=== PATIENT | female | born 1945 | race Caucasian/White ===

== ENCOUNTER 2023-08-01 11:05 | Inpatient (IN) | payer BC, SELFPAY ==
[2023-08-01] VITALS (17 sets, daily range): BP systolic 97–155; BP diastolic 25–80; PULSE 59–84; RESP 13–20; TEMP 35.6–36.7; O2SAT 97–98
--- NOTE | 2023-08-01 11:00 | RT.EKG_ITS ---
APPROVED REPORT Exam: Resting ECG Reason for Exam: weakness Patient Location: E HR:62 bpm ECG Measurements Heart Rate 62 AXIS DE 150 P -40 QRSd 88 QRS -19 QT 387 T -3 QTc 395 Conclusion Sinus rhythm...normal P axis, V-rate 60- 99 Inferior infarct, old...Q >35mS, II III aVF
[2023-08-01 11:36] LABS: Abs Immature Grans 0.01 10^3/uL (0.0-0.06); Absolute Basophil Count 0.03 10^3/uL (0.0-0.2); Absolute Eosinophil Count 0.07 10^3/uL (0.0-0.7); Absolute Lymphocyte Count 0.99 10^3/uL (1.2-3.4); Absolute Monocyte Count 0.34 10^3/uL (0.1-0.8); Absolute Neutrophil Count 5.08 10^3/uL (1.2-6.7); Basophils % 0.5; Eosinophils % 1.1; HCT 36.9 % (36.0-46.0); HGB 12.2 g/dL (11.2-15.7); Immature Grans % 0.2; Lymphocytes % 15.2; MCH 29.8 pg (27.0-33.0); MCHC 33.1 % (32.0-36.0); MCV 90 fL (80-95); MPV 10.1 fL (8.0-11.0); Monocytes % 5.2; Neutrophils % 77.8; Platelet Count 195 10^3/uL (130-400); RDW 12.9 % (11.7-14.6); RDW-SD 42.4 fL; WBC 6.52 10^3/uL (4.4-10.8)
--- NOTE | 2023-08-01 11:38 | ED.GENADUL_ITS ---
HPI General Mode of arrival: wheelchair . Date/Time Provider Initiated Documentation: 08/01/23 11:12 . Limitations to Documentation: no limitations . Information obtained by: patient and RN notes reviewed . History of Present Illness 77 year old F presents to the emergency department with the chief complaint of Dizziness, fatigue, malaise, black stools since yesterday, described as similar to prior episodes (Vertigo similar to past), Patient started experiencing this week(s) (2) and it has been constant. Patient did receive the following treatments prior to arrival, none Related Data Home Medications Medication Instructions Recorded Confirmed aspirin 81 mg chewable tablet 81 mg PO DAILY 08/01/23 08/01/23 (Jake Chewable Low Dose Aspirin) atorvastatin 80 mg tablet 80 mg PO DAILY 08/01/23 08/01/23 carvedilol 25 mg tablet 25 mg PO BID 08/01/23 08/01/23 chlorthalidone 25 mg tablet 25 mg PO DAILY 08/01/23 08/01/23 ibuprofen 200 mg tablet (Advil) 200 mg PO TID-QID PRN 08/01/23 08/01/23 lisinopril 40 mg tablet 40 mg PO DAILY 08/01/23 08/01/23 multivitamin 1 tab PO DAILY 08/01/23 08/01/23 Allergies Allergy/AdvReac Type Severity Reaction Status Date / Time No Known Allergies Allergy Unverified 08/01/23 11:16 General Stated Complaint: GenMedical MARLON: 3 Review of Systems Constitutional Constitutional: Reports chills, Denies fever(s), Denies frequent falls, Denies headache(s), Reports lethargy, Reports malaise and Reports poor appetite ENT Ears, Nose, Mouth, and Throat: Reports dizziness and Denies headache(s) Cardiovascular Cardiovascular: Denies chest pain, Denies syncope, Denies dyspnea and Denies dyspnea on exertion Respiratory Respiratory: Denies cough, Denies dyspnea and Denies dyspnea on exertion Gastrointestinal Gastrointestinal: Denies abdominal pain, Reports melena, Reports diarrhea, Denies nausea and Denies vomiting Genitourinary Genitourinary: Denies hematuria Neurologic Neurologic: Denies confusion, Reports dizziness, Denies syncope, Denies frequent falls and Denies headache(s) Psychiatric Psychiatric: Denies confusion Exam Const General: cooperative Orientation: alert, awake and oriented x3 Eyes Visual Grande: normal visual grande by confrontation Alignment and Position: alignment normal Periorbital: periorbital findings normal Eyelids: eyelids normal Sclera: sclerae normal Pupils: PERRL EOM: EOM intact bilaterally, no movement deficit and No nystagmus Neck Neck: normal visual inspection Resp Effort & Inspection: normal respiratory effort and able to speak in complete sentences Auscultation: clear to auscultation bilaterally Cardio Rate: regular rate Rhythm: regular rhythm Heart Sounds: S1 normal and S2 normal GI Inspection: obesity Palpation: soft, not firm, no guarding, no masses, no pulsatile masses, not rigid and nontender Auscultation: normal bowel sounds Rectal Exam - female: normal sphincter tone, heme negative stool and hemorrhoids Back/Spine/Pelvis Back: no CVA tenderness Neuro General: patient alert, patient awake, patient oriented x3, gait normal and moves all extremities Cranial Nerves: no nystagmus Cognition: normal cognition Speech: speech normal Motor: muscle tone normal throughout, no pronator drift, no movement abnormalities noted and no fasciculations Sensory Exam: no sensory deficits noted Course Vital Signs Vital signs: Vital Signs Temperature 36.2 C L 08/01/23 11:12 Pulse 70 08/01/23 11:12 Respiratory Rate 18 08/01/23 11:12 Blood Pressure 155/45 H 08/01/23 11:12 Pulse Oximetry 97 08/01/23 11:12 Temperature 36.2 C L 08/01/23 11:12 Temperature Source Temporal Artery Scan 08/01/23 11:12 Pulse 70 08/01/23 11:12 Respiratory Rate 18 08/01/23 11:12 Blood Pressure 155/45 H 08/01/23 11:12 Blood Pressure Position Sitting 08/01/23 11:12 Pulse Oximetry 97 08/01/23 11:12 Oxygen Delivery Method Room Air 08/01/23 11:12 Oxygen Flow Rate 0 08/01/23 11:12 Lab/Test Results Lab/Test Results: Laboratory Tests Range/Units 08/01/23 11:25 WBC (4.4-10.8) 10^3/uL 6.52 RBC (3.93-5.22) 10^6/uL 4.10 Hgb (11.2-15.7) g/dL 12.2 Hct (36.0-46.0) % 36.9 MCV (80-95) fL 90 MCH (27.0-33.0) pg 29.8 MCHC (32.0-36.0) % 33.1 RDW (11.7-14.6) % 12.9 Plt Count (130-400) 10^3/uL 195 MPV (8.0-11.0) fL 10.1 Immature Gran % 0.2 Neutrophils % 77.8 Lymphocytes % 15.2 Monocytes % 5.2 Eosinophils % 1.1 Basophils % 0.5 Nucleated RBC % (0.0-0.3) % 0.0 Absolute Neutrophils (1.2-6.7) 10^3/uL 5.08 Absolute Lymphocytes (1.2-3.4) 10^3/uL 0.99 L Absolute Monocytes (0.1-0.8) 10^3/uL 0.34 Absolute Eosinophils (0.0-0.7) 10^3/uL 0.07 Absolute Basophils (0.0-0.2) 10^3/uL 0.03 Medical Decision Making Patient presenting to the emergency department with son for chief complaint of dizziness fatigue and dark stools that started yesterday. She does report some green loose stools for the past 2 weeks and low food and drink intake. On Wednesday evening she did take Pepto-Bismol for her loose stools. She is here staying with her son and has been here for a while due to the holidays and recently losing her of 61 years. She has been going through quite a bit of grief. Patient has significant past medical history of hypertension, hyperlipidemia, coronary artery disease with 5 stents placed but no history of MN, and has had vertigo in the past which she states is similar to what she is experiencing but today is significantly worse. Patient denies any injury or trauma, fever or chills. She does state positioning does make her dizziness worse. Physical exam shows no obvious neurological findings but of note and could not complete hints exam due to hesitancy from symptoms with movement. Normal cardiac and respiratory exam, no obvious abdominal findings, negative Hemoccult and rectal exam otherwise unremarkable beyond obvious external hemorrhoid. Will plan on performing labs, urinalysis, EKG, and CT imaging of the head and abdomen. Please see physician interpretation for full interpretation of EKG but upon my review patient is in sinus rhythm, and no acute findings to suggest STEMI. Reviewed labs and CBC is overall nondiagnostic, CMP does show significantly low carbon dioxide at 16.5, elevated anion gap of 17.5 BUN critical value of 112, creatinine of 3.1 with a GFR of 14. Glucose is 151 and slightly low AST at 13 otherwise all other labs are within normal range. Patient does have findings to suggest urinary tract infection given large amount of leukocyte esterase and white cells greater than 50. Lab did state contaminated specimen but I do feel that patient may have underlying UTI. Will start patient on ceftriaxone, give 1 L fluid bolus and start patient on maintenance fluids. 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 No hydrocephalus. No large territorial infarct or intracranial bleed. Discussed with patient she has had no knowledge of a cyst in the past. [place] [facility] [place] to discuss patient's dizziness and this finding but have fairly low suspicion that this would require emergent intervention. Imaging Data Radiologic Study: Imaging: CT Scan Radiologist's impression: Exam(s) PROCEDURE INFORMATION: Exam: CT Head Without Contrast Exam date and time: 08/01/2023 12:11 PM Age: 77 years old Clinical indication: Other: Dizziness TECHNIQUE: Imaging protocol: Computed tomography of the head without contrast. Radiation optimization: All CT scans at this facility use at least one of these dose optimization techniques: automated exposure control; mA and/or kV adjustment per patient size (includes targeted exams where dose is matched to clinical indication); or iterative reconstruction. COMPARISON: No relevant prior studies available. FINDINGS: Brain: There are anterior dural falx calcifications. There is a partially empty sella. There are pineal gland calcifications. No large territorial infarct. There are bilateral calcifications of the cavernous segments of internal carotid arteries. Cerebral ventricles: There is a round hyperdense lesion at the foramen of Monro measuring 6 mm. No significant hydrocephalus. Paranasal sinuses: Visualized sinuses are unremarkable. No fluid levels. Mastoid air cells: Visualized mastoid air cells are well aerated. Bones/joints: Unremarkable. No acute fracture. Soft tissues: Unremarkable. IMPRESSION: 1. Colloid cyst at foramina of Monro measuring 6 mm. No hydrocephalus. 2. No large territorial infarct or intracranial bleed. Radiologic Study #2: Imaging: CT Scan Radiologist's impression: Exam(s) PROCEDURE INFORMATION: Exam: CT Abdomen And Pelvis Without Contrast Exam date and time: 08/01/2023 12:19 PM Age: 77 years old Clinical indication: Other: Dark stools TECHNIQUE: Imaging protocol: Computed tomography of the abdomen and pelvis without contrast. Radiation optimization: All CT scans at this facility use at least one of these dose optimization techniques: automated exposure control; mA and/or kV adjustment per patient size (includes targeted exams where dose is matched to clinical indication); or iterative reconstruction. COMPARISON: No relevant prior studies available. FINDINGS: Limitations: Evaluation of the solid and vascular structures is somewhat limited by lack of IV contrast. Lungs: The visualized lung bases demonstrate mild dependent atelectasis. Coronary arteries: Coronary artery calcifications are noted. Liver: The liver contains a subcentimeter hypodense lesion, too small to characterize. It appears otherwise grossly unremarkable. Gallbladder and bile ducts: Stones are present in the gallbladder. Pancreas: Grossly unremarkable. Spleen: Grossly unremarkable. Adrenal glands: Grossly unremarkable. Kidneys and ureters: There is no hydronephrosis, and no renal or ureteral calculus is identified. The kidneys appear grossly unremarkable. Stomach and bowel: The unopacified small bowel is not significantly distended to suggest obstruction. Minor descending and sigmoid colonic diverticulosis without evidence for diverticulitis. The large bowel is otherwise grossly unremarkable in appearance. Appendix: The appendix is not identified, but there are no inflammatory changes in its expected region. Intraperitoneal space: No free air or significant free fluid. Vasculature: The abdominal aorta is nonaneurysmal. Atherosclerotic vascular calcifications are noted. Lymph nodes: No gross pathologic lymphadenopathy. Urinary bladder: There is a 7 mm stone in the left posterior aspect of the urinary bladder. Reproductive: No gross adnexal abnormality is apparent, but ultrasound would be more appropriate in this regard. Bones/joints: Unremarkable. No acute fracture. Soft tissues: Small fat containing umbilical hernia. IMPRESSION: 1. No hydronephrosis or renal or ureteral calculus. 2. 7 mm stone in the urinary bladder. 3. Cholelithiasis. 4. Minor left-sided colonic diverticulosis without evidence for diverticulitis. 5. Small fat containing umbilical hernia. Lab Data Lab results reviewed: Yes I reviewed the patient's lab results. Labs: Laboratory Tests Range/Units 08/01/23 08/01/23 11:25 13:15 WBC (4.4-10.8) 10^3/uL 6.52 RBC (3.93-5.22) 10^6/uL 4.10 Hgb (11.2-15.7) g/dL 12.2 Hct (36.0-46.0) % 36.9 MCV (80-95) fL 90 MCH (27.0-33.0) pg 29.8 MCHC (32.0-36.0) % 33.1 RDW (11.7-14.6) % 12.9 Plt Count (130-400) 10^3/uL 195 MPV (8.0-11.0) fL 10.1 Immature Gran % 0.2 Neutrophils % 77.8 Lymphocytes % 15.2 Monocytes % 5.2 Eosinophils % 1.1 Basophils % 0.5 Nucleated RBC % (0.0-0.3) % 0.0 Absolute Neutrophils (1.2-6.7) 10^3/uL 5.08 Absolute Lymphocytes (1.2-3.4) 10^3/uL 0.99 L Absolute Monocytes (0.1-0.8) 10^3/uL 0.34 Absolute Eosinophils (0.0-0.7) 10^3/uL 0.07 Absolute Basophils (0.0-0.2) 10^3/uL 0.03 PT (9.1-11.1) sec 11.3 H INR (0.9-1.1) 1.1 Sodium (136-145) mmol/L 138 Potassium (3.5-5.1) mmol/L 3.5 Chloride (98-107) mmol/L 104 Carbon Dioxide (21.0-32.0) mmol/L 16.5 L Anion Gap (3-11) mmol/L 17.5 H BUN (7-18) mg/dL 112 H* Creatinine (0.55-1.02) mg/dL 3.1 H Est GFR (CKD-EPI 2020) (mL/min/1.73m2) 14.74 Glucose (74-106) mg/dL 151 H Calcium (8.5-10.1) mg/dL 9.4 Magnesium (1.8-2.4) mg/dL 1.9 Total Bilirubin (0.2-1.0) mg/dL 0.4 AST (15-37) U/L 13 L ALT (14-59) U/L 16 Alkaline Phosphatase (46-116) U/L 76 Troponin I (< or =60) ng/L < 50 Total Protein (6.4-8.2) g/dL 8.1 Albumin (3.4-5.0) g/dL 3.9 Urine Color (Yellow) Yellow Urine Clarity (Clear) Sl Cloudy Urine pH (5-8) 5.5 Ur Specific [place] (1.005-1.025) 1.010 Urine Protein (Negative) mg/dL Trace H Urine Ketones (Negative) mg/dL Negative Urine Blood (Negative) Trace-intact H Urine Nitrite (Negative) Negative Urine Bilirubin (Negative) Negative Urine Urobilinogen (Up to 0.2) mg/dL 0.2 Ur Leukocyte Esterase (Negative) Large H Urine RBC (0-2) HPF 5-10 H Urine WBC (0-5) HPF >50 H Ur Epithelial Cells (Negative) HPF Many Urine Crystals (Negative) HPF Negative Urine Bacteria (Negative) HPF Many Urine Casts (Negative) LPF Negative Urine Mucus (Negative) Negative Ur Culture Indicated? No/Sq. Contamination Urine Glucose (Negative) mg/dL Negative Salicylates (<2.8) mg/dL < 2.8 Patient ABO/Rh A Positive Antibody Screen NEGATIVE Quality:SDOH Health Related Social Needs: Health related social needs details no needs, PFSH All Active Problems (Updated 08/01/23 @ 16:13 by Lamar Johnson MD) Discharge planning issues (Acute) DVT prophylaxis (Acute) Diarrhea (Acute) CAD (coronary artery disease) (Chronic) Dehydration (Acute) Acute UTI (Acute) Grief reaction (Chronic) Acute renal failure (Acute) Dizziness (Acute) Colloid cyst of brain (Acute) Hypertension (Chronic) Medical History (Updated 08/01/23 @ 16:13 by Lamar Johnson MD) Vertigo Surgical History (Updated 08/01/23 @ 20:04 by Lamar Johnson MD) History of total right knee replacement H/O shoulder surgery R shoulder History of carpal tunnel surgery of right wrist H/O cardiac catheterization stents x 5 in 2009 Family History Father Heart disease Paternal Grandmother Diabetes Social History (Updated 08/01/23 @ 20:05 by Lamar Johnson MD) Smoking/Tobacco Use Status: Never Smoking risk assessment performed?: Yes Alcohol Intake: current Alcohol Intake frequency: holidays/special occasions only Drug use: Never Substance use type: does not use Housing: house Discharge Plan Disposition Patient Disposition: Admit to [facility] Discharge Details Clinical Impression: Colloid cyst of brain, Dizziness, Acute renal failure, Grief reaction, Acute UTI, Dehydration Admit Date/Time: 08/01/23 16:01 Admit Provider: Lamar Johnson Attending Provider: Lamar Johnson [facility] Sam[facility] Fleming Discharge Data Discharge Date/Time-TO BE ENTERED AT DEPARTURE: 08/01/23 16:57
[2023-08-01] MEDS: Normal Saline 500 ML IV ×2 (11:44→13:30)
[2023-08-01] MEDS: Meclizine 25 MG TAB PO (11:44)
--- NOTE | 2023-08-01 11:45 | DI.CT_ITS ---
Exam(s) CT HEAD WO EXAM: CT HEAD WO CLINICAL HISTORY: dizziness. TECHNIQUE: Imaging Protocol: Axial computed tomography images with coronal and sagittal reformatted images were created and reviewed COMPARISON: No exams were available for comparison FINDINGS: Ventricles and Extra axial spaces: Normal in size and morphology for the patient's age. five millimet er colloid cyst at the foramen of monro. Hemorrhage: None. Cerebral parenchyma: No evidence of acute infarct or mass. Midline shift: None. Brainstem/Cerebellum: Normal. Calvarium: Normal. Visualized Paranasal sinuses:Clear. Mastoids: Clear. Soft Tissues: Unremarkable. ORBITS: Unremarkable. PITUITARY: PARTIALLY EMPTY SELLA. IMPRESSION: No acute intracranial process. 5 millimeters colloid cyst at foramen of Monro. No ventricular dilatation. RADIATION DOSE DELIVERED: Total DLP Total DLP Total DLP DATA REPOSITORY: All CT scans at this facility are submitted to the National Radiology Data Registry (NRDR) Dose Index Registry (DIR) with the [employer] (ACR). RADIATION OPTIMIZATION: All CT scans at this facility use at least one of these dose optimization te chniques: automated exposure control; mA and/or kV adjustment per patient size (includes targeted exa ms where dose is matched to clinical indication); or iterative reconstruction.
--- NOTE | 2023-08-01 11:45 | DI.CT_ITS ---
Exam(s) CT ABDOMEN PELVIS WO EXAM: CT ABDOMEN PELVIS WO CLINICAL HISTORY: dark stools. TECHNIQUE: Imaging Protocol: Axial computed tomography images with coronal and sagittal reformatted images were created and reviewed. Oral: no COMPARISON: No exams were available for comparison FINDINGS: Lung Bases: No acute findings. Liver: Normal density. No measurable mass. Gallbladder and biliary tract: Cholelithiasis. No biliary dilatation. No gallbladder wall thicken ing. Pancreas: Normal density, no abnormal calcifications or inflammatory process. Spleen: Normal. Kidneys: Normal size, contour and axis. No radiodense stones or obstructive uropathy. No suspicious m asses seen. Adrenal glands: No masses seen. Lymph nodes: Within normal limits. Vasculature: Abdominal aorta non-dilated. Soft tissues: Small fatty containing umbilical hernia. Bladder: No wall thickening. 7 millimeter stone in bladder. Bowel: No obstruction or bowel wall thickening. Mild diverticulosis. No evidence of diverticulitis . Normal quantity of stool. Peritoneal cavity: No ascites, collection or mesenteric inflammatory response. Reproductive organs: Unremarkable. Bones: Unremarkable for age. IMPRESSION: 7 millimeter calculus in bladder. No bladder wall thickening. No evidence of hydronephrosis. Note renal calculi. Mild diverticulosis. No evidence of diverticulitis or bowel wall thickening. No evidence of appendi citis. Cholelithiasis. No evidence of acute cholecystitis or biliary dilatation. RADIATION DOSE DELIVERED: 985.59mGy.cm Total DLP DATA REPOSITORY: All CT scans at this facility are submitted to the National Radiology Data Registry (NRDR) Dose Index Registry (DIR) with the [employer] (ACR). RADIATION OPTIMIZATION: All CT scans at this facility use at least one of these dose optimization te chniques: automated exposure control; mA and/or kV adjustment per patient size (includes targeted exa ms where dose is matched to clinical indication); or iterative reconstruction.
[2023-08-01 11:46] LABS: INR 1.1 (0.9-1.1); Prothrombin Time 11.3 sec (9.1-11.1)
[2023-08-01 11:53] LABS: ALT 16 U/L (14-59); AST 13 U/L (15-37); Albumin 3.9 g/dL (3.4-5.0); Alkaline Phosphatase 76 U/L (46-116); Anion Gap 17.5 mmol/L (3-11); Bilirubin, Total 0.4 mg/dL (0.2-1.0); CO2 16.5 mmol/L (21.0-32.0); CREATININE 3.1 mg/dL (0.55-1.02); Calcium 9.4 mg/dL (8.5-10.1); Chloride 104 mmol/L (98-107); Estimated GFR 14.74 (mL/min/1.73m2); Glucose 151 mg/dL (74-106); Magnesium 1.9 mg/dL (1.8-2.4); Potassium 3.5 mmol/L (3.5-5.1); Sodium 138 mmol/L (136-145); Total Protein 8.1 g/dL (6.4-8.2); Troponin I < 50 ng/L (< or =60)
[2023-08-01 11:55] LABS: BUN 112 mg/dL (7-18)
--- NOTE | 2023-08-01 12:37 | DI.VRAD_ITS ---
PROCEDURE INFORMATION: Exam: CT Head Without Contrast Exam date and time: 08/01/2023 12:11 PM Age: 77 years old Clinical indication: Other: Dizziness TECHNIQUE: Imaging protocol: Computed tomography of the head without contrast. Radiation optimization: All CT scans at this facility use at least one of these dose optimization techniques: automated exposure control; mA and/or kV adjustment per patient size (includes targeted exams where dose is matched to clinical indication); or iterative reconstruction. COMPARISON: No relevant prior studies available. FINDINGS: Brain: There are anterior dural falx calcifications. There is a partially empty sella. There are pineal gland calcifications. No large territorial infarct. There are bilateral calcifications of the cavernous segments of internal carotid arteries. Cerebral ventricles: There is a round hyperdense lesion at the foramen of Monro measuring 6 mm. No significant hydrocephalus. Paranasal sinuses: Visualized sinuses are unremarkable. No fluid levels. Mastoid air cells: Visualized mastoid air cells are well aerated. Bones/joints: Unremarkable. No acute fracture. Soft tissues: Unremarkable. IMPRESSION: 1. Colloid cyst at foramina of Monro measuring 6 mm. No hydrocephalus. 2. No large territorial infarct or intracranial bleed. Dictated and Authenticated by: Bebo Chacon MD. Ordering:RODRIGUEZ Christianson MD
--- NOTE | 2023-08-01 12:38 | DI.VRAD_ITS ---
PROCEDURE INFORMATION: Exam: CT Abdomen And Pelvis Without Contrast Exam date and time: 08/01/2023 12:19 PM Age: 77 years old Clinical indication: Other: Dark stools TECHNIQUE: Imaging protocol: Computed tomography of the abdomen and pelvis without contrast. Radiation optimization: All CT scans at this facility use at least one of these dose optimization techniques: automated exposure control; mA and/or kV adjustment per patient size (includes targeted exams where dose is matched to clinical indication); or iterative reconstruction. COMPARISON: No relevant prior studies available. FINDINGS: Limitations: Evaluation of the solid and vascular structures is somewhat limited by lack of IV contrast. Lungs: The visualized lung bases demonstrate mild dependent atelectasis. Coronary arteries: Coronary artery calcifications are noted. Liver: The liver contains a subcentimeter hypodense lesion, too small to characterize. It appears otherwise grossly unremarkable. Gallbladder and bile ducts: Stones are present in the gallbladder. Pancreas: Grossly unremarkable. Spleen: Grossly unremarkable. Adrenal glands: Grossly unremarkable. Kidneys and ureters: There is no hydronephrosis, and no renal or ureteral calculus is identified. The kidneys appear grossly unremarkable. Stomach and bowel: The unopacified small bowel is not significantly distended to suggest obstruction. Minor descending and sigmoid colonic diverticulosis without evidence for diverticulitis. The large bowel is otherwise grossly unremarkable in appearance. Appendix: The appendix is not identified, but there are no inflammatory changes in its expected region. Intraperitoneal space: No free air or significant free fluid. Vasculature: The abdominal aorta is nonaneurysmal. Atherosclerotic vascular calcifications are noted. Lymph nodes: No gross pathologic lymphadenopathy. Urinary bladder: There is a 7 mm stone in the left posterior aspect of the urinary bladder. Reproductive: No gross adnexal abnormality is apparent, but ultrasound would be more appropriate in this regard. Bones/joints: Unremarkable. No acute fracture. Soft tissues: Small fat containing umbilical hernia. IMPRESSION: 1. No hydronephrosis or renal or ureteral calculus. 2. 7 mm stone in the urinary bladder. 3. Cholelithiasis. 4. Minor left-sided colonic diverticulosis without evidence for diverticulitis. 5. Small fat containing umbilical hernia. Dictated and Authenticated by: Celestine Castillo MD. Ordering:RODRIGUEZ Christianson MD
[2023-08-01 13:32] LABS: Bilirubin Negative (Negative); Blood Trace-intact (Negative); Clarity Sl Cloudy (Clear); Glucose Negative (Negative); Ketones Negative (Negative); Leukocyte Esterase Large (Negative); Nitrite Negative (Negative); Urobilinogen 0.2 mg/dL (Up to 0.2); pH 5.5 (5-8)
[2023-08-01 13:39] LABS: Bacteria Many HPF (Negative); C & S Indicated? No/Sq. Contamination; Casts Negative LPF (Negative); Crystals Negative HPF (Negative); Epithelial Cells Many HPF (Negative); Mucus Negative (Negative); WBC >50 HPF (0-5)
[2023-08-01] MEDS: Normal Saline 1,000 ML 150 ML IV (14:30)
[2023-08-01 14:35] LABS: Salicylate < 2.8 mg/dL (<2.8)
[2023-08-01] MEDS: cefTRIAXone 1 GM/50 ML BAG IVPB (14:44)
--- NOTE | 2023-08-01 16:02 | HPE_ITS ---
Date of service: 08/01/23 Time of Service: 16:02 Assessment and Plan Assessment and plan (1) Acute UTI: Status: Acute Assessment and plan: Present on admission. Does have evidence of a stone in her bladder. Await urine C&S. Continue empiric ceftriaxone and IV hydration. (2) Acute renal failure: Status: Acute Assessment and plan: Appears to be pre-renal. Monitor with IV hydration. Hold lisinopril and chlorthalidone. Check CPK. Hold NSAIDs. (3) Dizziness: Status: Acute Assessment and plan: W/ h/o vertigo, trial meclizine, lorazepam, PT C/s. Doubt that this is related to the colloidal cyst. Will discuss with neurosurgery. (4) Diarrhea: Status: Acute Assessment and plan: obtain stool studies. Start probiotics. Write for pnr loperamide. 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 (6) CAD (coronary artery disease): Status: Chronic Assessment and plan: Continue aspirin, statin, coreg. Hold lisinopril in setting of FANNY. (7) Hypertension: Status: Chronic Assessment and plan: As above Hold chlorthalidone and lisinopril. (8) Dehydration: Status: Acute Assessment and plan: Hydrate with Lactate ringers. (9) Grief reaction: Status: Chronic Assessment and plan: The patient lost her in April. I will spend more time with her investigating whether she would benefit from medication during this time. (10) DVT prophylaxis: Status: Acute Assessment and plan: SC heparin (11) Discharge planning issues: Status: Acute Assessment and plan: Full code by default The patient is not actually sure about her code status and will get back to me. I did introduce the idea of palliative care consult. C/s PT. Will need neurosurgical follow up. History of Present Illness History of Present Illness Chief Complaint: failiure to thrive, dizziness N arrative: Ms Sandoval is a 77 year old female with PMHx of CAD s/p PCI x5 (2009), as well as h/o HTN, hyperlipidemia, vertigo, obesity with BMI of 35 who was brought to [facility] today c/o dizziness and diarrhea x 2 weeks, accompanied by fatigue, malaise, and black stools yesterday (took peptobismol). The patient had lost her last April, which also contributes to her having poor appetite and sleeping 16 hrs a day. However, her diarrhea, dizziness, and nausea are what she says prevents her from eating and drinking currently. She says she was told she had vertigo by a doctor many years ago. Usually, vertigo episodes last 2-3 days and resolve. This episode is unusual in that it has lasted for two weeks. No medications she has tried had ever really helped. She describes dizziness and nausea on turning her head to the left but also on standing. Denies fever, cough, abdominal pain. Diarrhea was watery and not bloody. It only turned black after taking peptobismol. Her son, whom she is currently visiting in [place], also endorses her having had poor PO intake. Her hemoglobin was 12.2. Her stools were hemoccult negative in the ED. She is found to be in FANNY with a Cr of 3.1 and BUN of 112. There is evidence of a UTI on her UA. CT of the head shows a 5 mm colloid cyst at foramen of Monro without ventricular dilatation. Calls are out to [facility] neurology/neurosurgery to discusss this finding. Meanwhile, the patient was initiated on ceftriaxone and IVF, and a hospitalist admission was requested. Review of Systems All systems reviewed & are unremarkable except as noted in HPI and below PFSH All Active Problems (Updated 08/01/23 @ 16:13 by Lamar Johnson MD) Discharge planning issues (Acute) DVT prophylaxis (Acute) Diarrhea (Acute) CAD (coronary artery disease) (Chronic) Dehydration (Acute) Acute UTI (Acute) Grief reaction (Chronic) Acute renal failure (Acute) Dizziness (Acute) Colloid cyst of brain (Acute) Hypertension (Chronic) Medical History (Updated 08/01/23 @ 16:13 by Lamar Johnson MD) Vertigo Surgical History (Updated 08/01/23 @ 20:04 by Lamar Johnson MD) History of total right knee replacement H/O shoulder surgery R shoulder History of carpal tunnel surgery of right wrist H/O cardiac catheterization stents x 5 in 2009 Family History Father Heart disease Paternal Grandmother Diabetes Social History (Updated 08/01/23 @ 20:05 by Lamar Johnson MD) Smoking/Tobacco Use Status: Never Smoking risk assessment performed?: Yes Alcohol Intake: current Alcohol Intake frequency: holidays/special occasions only Drug use: Never Substance use type: does not use Housing: house Meds Allergies and Home Medications Allergies Allergy/AdvReac Type Severity Reaction Status Date / Time No Known Allergies Allergy Unverified 08/01/23 11:16 Home Medications Medication Instructions Recorded Confirmed Type aspirin 81 mg chewable tablet 81 mg PO DAILY 08/01/23 08/01/23 History (Jake Chewable Low Dose Aspirin) atorvastatin 80 mg tablet 80 mg PO DAILY 08/01/23 08/01/23 History carvedilol 25 mg tablet 25 mg PO BID 08/01/23 08/01/23 History chlorthalidone 25 mg tablet 25 mg PO DAILY 08/01/23 08/01/23 History ibuprofen 200 mg tablet (Advil) 200 mg PO TID-QID PRN 08/01/23 08/01/23 History lisinopril 40 mg tablet 40 mg PO DAILY 08/01/23 08/01/23 History multivitamin 1 tab PO DAILY 08/01/23 08/01/23 History Exam Narrative Exam Narrative: General: A pleasant elderly female who gets tearful several times during our interview when talking about her late , A&Ox3, uncomfortable when turning to the left Neurological: A&Ox3, EOMI, She does close her eyes when I try to have her look to the left; I do not appreciate nystagmus. No focal deficits Psychiatric: Tearful Skin: Visible skin dry, intact HEENT: Atraumatic, normocephalic, EOMI, dry MM, clear oropharynx, no submandibular or cervical lymphadenopathy, no goiter or JVD Cardiovascular: RRR, no m/r/g Lungs: CTAB Gastrointestinal: soft, nonteder, nondistended Genitourinary: deferred Extremities: no edema BLEs Results Imaging Imaging Studies: CT head: No acute intracranial process. 5 millimeters colloid cyst at foramen of Monro. No ventricular dilatation. CT abdomen/pelvis: 1. No hydronephrosis or renal or ureteral calculus. 2. 7 mm stone in the urinary bladder. 3. Cholelithiasis. 4. Minor left-sided colonic diverticulosis without evidence for diverticulitis. 5. Small fat containing umbilical hernia. EKG: HR 62, NSR, no acute ischemia Labs 08/01/23 11:25 08/01/23 11:25 Labs: Laboratory Results - last 24 hr 08/01/23 08/01/23 11:25 13:15 WBC 6.52 RBC 4.10 Hgb 12.2 Hct 36.9 MCV 90 MCH 29.8 MCHC 33.1 RDW 12.9 Plt Count 195 MPV 10.1 Immature Gran % 0.2 Neutrophils % 77.8 Lymphocytes % 15.2 Monocytes % 5.2 Eosinophils % 1.1 Basophils % 0.5 Nucleated RBC % 0.0 Absolute Neutrophils 5.08 Absolute Lymphocytes 0.99 L Absolute Monocytes 0.34 Absolute Eosinophils 0.07 Absolute Basophils 0.03 PT 11.3 H INR 1.1 Sodium 138 Potassium 3.5 Chloride 104 Carbon Dioxide 16.5 L Anion Gap 17.5 H BUN 112 H* Creatinine 3.1 H Est GFR (CKD-EPI 2020) 14.74 Glucose 151 H Calcium 9.4 Magnesium 1.9 Total Bilirubin 0.4 AST 13 L ALT 16 Alkaline Phosphatase 76 Troponin I < 50 Total Protein 8.1 Albumin 3.9 Urine Color Yellow Urine Clarity Sl Cloudy Urine pH 5.5 Ur Specific [place] 1.010 Urine Protein Trace H Urine Ketones Negative Urine Blood Trace-intact H Urine Nitrite Negative Urine Bilirubin Negative Urine Urobilinogen 0.2 Ur Leukocyte Esterase Large H Urine RBC 5-10 H Urine WBC >50 H Ur Epithelial Cells Many Urine Crystals Negative Urine Bacteria Many Urine Casts Negative Urine Mucus Negative Ur Culture Indicated? No/Sq. Contamination Urine Glucose Negative Salicylates < 2.8 Patient ABO/Rh A Positive Antibody Screen NEGATIVE Last Vital Signs Temp 36.2 C L 08/01/23 11:45 Pulse 70 08/01/23 14:30 Resp 16 08/01/23 14:30 BP 119/39 L 08/01/23 14:30 Pulse Ox 97 08/01/23 11:45 Time Spent Time spent with Patient: 55-74 minutes Time was spent: preparing to see the patient(eg.review tests), obtaining and/or reviewing separately otained hiistory, ordering medications,tests, procedures, referring, communicating with other health director of healthcare systems, indepentently interpreting results, counseling the patient and care coordination
--- OUTSIDE RECORDS SUMMARY | 2023-08-01 16:51 | XMS_ITS | Continuity of Care Document ---
Author Name [facility] Address [address] [place] [address] Organization [facility] Address [address] [place] [address] Care Team Providers Care Cipher Expert Name Role Phone Pablo Carpio Primary Care Provider [phone] Glen Walters Attending Provider Allergies, Adverse Reactions, Alerts Allergen Type Severity Reaction Last Updated Verified Status hydrocodone Allergy Unknown August 09, 2020 Y Act gilmar oxycodone Allergy Unknown August 09, 2020 Y Activ e Medications Active Medications Medication Dose Units Route Sig Start Date Status Atorvastatin 40 MG Oral EVERY EVENING August 09 Active Carvedilol [Coreg] 12.5 MG Oral DAILY August 09 Active Lisinopril [Zestril] 10 MG Oral DAILY August 09, 2020 Active Hydrochlorothiazide 25 MG Oral DAILY@0600 July 132020 Active Gabapentin 100 MG Oral THREE TIMES A DAY August 09, 2020 Active Discontinued Medications Medication Dose Units Route Sig Start Date Discontinu ed Date Status Atorvastatin 10 MG Oral EVERY EVENING JulAugust 09, 2020 Discontinued Problem List Active Problems Medical Problem Onset Date Status Right carpal tunnel syndrome Act gilmar Chest pain Active Procedures No known history of procedures. Relevant Diagnostic Tests and/or Laboratory Data Laboratory Results Test Date/Time Result Interp. Ref. Range Result Co mment Triglycerides Level April 01, 2023 9:42am 143 mg/dL <150 <=150 mg/dL = Desirable Cholesterol Level April 01, 2023 9:42am 114 mg/dL <199 <200 mg/dL = Desirable LDL Cholesterol, Calculated April 01, 2023 9:42am 48 mg/dl <130 HDL Cholesterol April 01, 2023 9:42am 37 mg/dL Low >40 < 40 mg/dl: Low HDL-cholesterol(m ajor risk factor for CHD) >/= 60 mg/dl: High HDL-cholesterol(n egative risk factor for CHD) HDL-cholesterol is affected by a number of factors, e.g., smoking, excercise, hormones, sex and age. Cholesterol/HDL Ratio April 01, 2023 9:42am 3.1 Cholesterol/HDL Interpretation: Ratio Men Women 1/2 Average 3.43 3.27 Average 4.97 4.44 2X Average 9.55 7.05 3X Average 23.39 11.04 Chief Complaint and Reason for Visit Encounter Admit Date Chief Complaint Reason for V isit Departed Clinical April 01, 2023 9:34am [id number] Hospital Discharge Instructions No known hospital discharge instructions. Hospital Discharge Medications Medication Dose Units Route Sig Qty Days Order Date Status Instructions Atorvastatin 40 MG Oral EVERY EVENING August 09, 2020 Active Carvedilol 12.5 MG Oral DAILY 2020 Active Atorvastatin 10 MG Oral EVERY EVENING August 09, 2020 Discontinued Lisinopril 10 MG Oral DAILY 2020 Active Hydrochlorothiazi de 25 MG Oral DAILY@06 00 August 09, 2020 Active Gabapentin 100 MG Oral THREE TIMES A DAY August 09, 2020 Active Encounters Encounter Facility Location Admit/Visit Date Discharge/Departure Date Attending Provider Departed Clinical [facility] Diagnostic - LAB April 01, 2023 9:34am April 01, 2023 9:35am Glen Walters Functional Status No known functional status. Immunizations No known immunizations. Plan of Care No Known Plan of Care Information Social History No known social history. Vital Signs No known vital signs results.
--- OUTSIDE RECORDS SUMMARY | 2023-08-01 16:51 | XMS_ITS | Continuity of Care Document ---
Author Name [facility] Address [address] [place] [address] Organization [facility] Address [address] [place] [address] Care Team Providers Care Clinical Education Academic Coordinator Name Role Phone Pablo Carpio Primary Care Provider Glen Walters Attending Provider Allergies, Adverse Reactions, [...] Date Discharge/Departure Date Attending Provider Departed Clinical [facility] Diagnostic - LAB April 01, 2023 9:34am April 01, 2023 9:35am Glen Walters Functional Status No known functional status. Immunizations No known immunizations. Plan of Care No Known Plan of Care Information Social History No known social history. Vital Signs No known vital signs results.
--- OUTSIDE RECORDS SUMMARY | 2023-08-01 16:51 | XMS_ITS | Continuity of Care Document ---
Author Name [facility] Address [address] [place] [address] Organization [facility] Address [address] [place] [address] Care Team Providers Care Watch Supervisor Name Role Phone Pablo Carpio Primary Care [...] Date Discharge/Departure Date Attending Provider Departed Clinical [facility] Diagnostic - LAB April 01, 2023 9:34am April 01, 2023 9:35am Glen Walters Functional Status No known functional status. Immunizations No known immunizations. Plan of Care No Known Plan of Care Information Social History No known social history. Vital Signs No known vital signs results.
--- OUTSIDE RECORDS SUMMARY | 2023-08-01 16:51 | XMS_ITS | Continuity of Care Document ---
Author Name [facility] Address [address] [place] [address] Organization [facility] Address [address] [place] [address] Care Team Providers Care Salon Stylist Name Role Phone Pablo Carpio Primary Care [...] Date Discharge/Departure Date Attending Provider Departed Clinical [facility] Diagnostic - LAB April 01, 2023 9:34am April 01, 2023 9:35am Glen Walters Functional Status No known functional status. Immunizations No known immunizations. Plan of Care No Known Plan of Care Information Social History No known social history. Vital Signs No known vital signs results.
--- OUTSIDE RECORDS SUMMARY | 2023-08-01 16:52 | XMS_ITS | Continuity of Care Document ---
Author Name Unknown Address [address] [place] [address] Phone [facility] Address [address] [place] [address] Phone Care Team Providers Care Gaming Director Name Role Phone DO Pablo Carpio Primary Care Provider MD Romeo Glen Attending Provider Chief Complaint and Reason for Visit Chief Complaint [id number] Allergies, Adverse Reactions, Alerts Allergen Type Severity Reaction Last Updated Verified Status hydrocodone Allergy Unknown Unknown August 09, 2020 10:25am Y es Active oxycodone Allergy Unknown Unknown August 09, 2020 10:25am Yes Active Social History Smoking Status Unknown if ever smoked Additional Data Assigned Sex Female Problems Active Problems Medical Problem Onset Date Status Right carpal tunnel syndrome Act gilmar Chest pain Active Medications Medication Status Dose Units Route Directions Qty Days St art Date End Date Instructions Atorvastatin Active 40 MG PO EVERY EVENING August 09, 2020 1:00am Carvedilol (Coreg) 12.5 MG tablet Active 12.5 MG PO DAILY August 09, 2020 1:00am Atorvastatin Discontin ued 10 MG PO EVERY EVENING August 09, 2020 1:00am Januar y 2020 11:14a m Lisinopril (Zestril) 10 MG tablet Active 10 MG PO DAILY August 09, 2020 1:00am Hydrochloroth iazide Active 25 MG PO DAILY@0600 August 09, 2020 1:00am Gabapentin Active 100 MG PO THREE CLAY ES A DAY August 09, 2020 1:00am Relevant Diagnostic Tests and/or Laboratory Data Laboratory Results Test Date/Time Result Interpretation Reference Range Result Comment Performing Site Triglycerides Level April 01, 2023 9:42am 143 mg/dL <150 <=150 mg/dL = Desirable [facility] [id number] [address] [address] Cholesterol Level April 01, 2023 9:42am 114 mg/dL <199 <200 mg/dL = Desirable [facility] [id number] [address] [facility] [address] LDL Cholesterol, Calculated April 01, 2023 9:42am 48 mg/dl <[address] [facility] [id number] [address] [address] HDL Cholesterol April 01, 2023 9:42am 37 mg/dL >40 < 40 mg/dl: Low HDL-cholest leonel(major risk factor for CHD)>/= 60 mg/dl: High HDL-cholest leonel(negati ve risk factor for CHD)HDL-cho lesterol is affected by a number of factors, e.g., smoking, excercise, hormones, sex and age. [facility] [id number] [address] [facility] [address] Cholesterol/HDL Ratio April 01, 2023 9:42am 3.1 Cholesterol /HDL Interpretat ion: Ratio Men Women 1/2 Average 3.43 3.27 Average 4.97 4.44 2X Average 9.55 7.05 3X Average 23.39 11.[address] [facility] [id number] [address] [facility] [address] Insurance Providers Guarantor Rabia Sandoval Address [address] [place] [address] Contact Info. Home Phone: Payer Policy Id Coverage Id Subscriber's Name Subscriber Id Effective Date Expiration Date [facility] Blue Cross [id number] Rabia Sandoval [id number] [facility] Sr Advantage [id number] Rabia Sandoval [id number] Medicare A&B [id number] Rabia Sandoval [id number] Self Pay Self N/A Encounters Encounter Location(s) Arrival/Admit Date Discharge/Depart Date Provider(s) Departed Clinical [facility] Diagnostic - LAB April 01, 2023 9:34am April 01, 2023 9:35am Glen Walters MD
--- OUTSIDE RECORDS SUMMARY | 2023-08-01 16:52 | XMS_ITS | Continuity of Care Document ---
Author Name Unknown Address [address] [place] [address] Phone [facility] Address [address] [place] [address] Phone Care Team Providers Care Senior Geotechnical Engineer Name Role Phone Pablo Carpio Primary Care Provider [phone] Hi Hillman Attending Provider [phone] Pablo Carpio Family Provider Dominick Hitchcock Attending Provider Allergies, Adverse Reactions, Alerts Allergen Type Severity Reaction Last Updated Verified Status hydrocodone Allergy Unknown August 09, 2020 9:25am Celestino napoles Active oxycodone Allergy Unknown August 09, 2020 9:25am Yes Active Medications Medication Status Dose Units Route Directions Qty Days St art Date End Date Instructions Atorvastatin (Lipitor) 10 MG Tablet Discontin ued 10 MG PO EVERY EVENING August 09, 2020 10:13am Bonnie y 2020 10:14a m Atorvastatin (Lipitor) 40 MG Tablet Active 40 MG PO EVERY EVENING August 09, 2020 10:13am Carvedilol (Coreg) 12.5 MG Tablet Active 12.5 MG PO DAILY August 09, 2020 10:13am Gabapentin (Neurontin) 100 MG Capsule Active 100 MG PO THREE TIMES A DAY August 09, 2020 10:13am Hydrochloroth iazide (Hydrodiuril) 25 MG Tablet Active 25 MG PO DAILY@0600 August 09, 2020 10:13am Lisinopril (Zestril) 10 MG Tablet Active 10 MG PO DAILY August 09, 2020 10:13am Problems Active Problems Medical Problem Onset Date Status Right carpal tunnel syndrome Act gilmar Procedures Procedure Date Performed Status Wrist Carpal Tunnel Release (Right) July 11:35am completed Relevant Diagnostic Tests and/or Laboratory Data Laboratory Results Test Date/Time Result Interpretation Reference Range Result Comment Performing Site Coronavirus (PCR) August 06, 2020 11:05am Not detected Not Detected This nucleic acid amplification test was developed and itsperformance characteristics determined by [employer]. Nucleic acid amplification tests include RT-PCR and TMA. This test has not been FDA cleared orapproved. This test has been authorized by FDA under anEmergency Use Authorization (EUA). This test is onlyauthorized for the duration of time the declaration thatcircumstances exist justifying the authorization of theemergency use of in vitro diagnostic tests for detection [id number] virus and/or diagnosis of COVID-19 infectionunder section 564(b)(1) of the Act, 21 U.S.C. 360bbb-3(b)(1), unless the authorization is terminated or revokedsooner.When diagnostic testing is negative, the possibility of afalse negative result should be considered in the contextof a patient's recent exposures and the presence ofclinical signs and symptoms consistent with COVID-19. Anindividual without symptoms of COVID-19 and who is notshedding SARS-CoV-2 virus would expect to have a negative(not detected) result in this assay. [facility] (SR) [id number] Advance Directives Advance Directive Response Recorded Date/ Time Advance Directives No August 09, 2020 10:16am Health Care Proxy No August 08, 2020 1:57pm Chief Complaint and Reason for Visit Chief Complaint Pre surgery testing CTS of Right Wrist Reason for Visit Right carpal tunnel syndrome Encounters Encounter Location(s) Arrival/Admit Date Discharge/Depart Date Provider(s) Departed Referred [facility] August 06, 2020 12:54am August 06, 2020 12:55am DIANA Nieto Departed Surgical Day Care [facility] August 09, 2020 9:28am August 09, 2020 12:20pm Dominick Hitchcock MD Recent Diagnosis Onset Date Right carpal tunnel syndrome Assessments Diagnosis Onset Date Resolution Status Right carpal tunnel syndrome acute Functional Status No Functional Status information available Goals Goals may be documented in an alternate section. Mental Status No Mental Status Information Available Medical Equipment No Medical Equipment Information available Insurance Providers Guarantor Rabia Sandoval Address [address] [place] [address] Contact Info. Home Phone: Payer Policy Id Coverage Id Subscriber's Name Subscriber Id Effective Date Expiration Date [employer] [id number] Rabia Garibayrosa [id number] Sammy Martinez Sr Advantage [id number] Rabia Sandoval [id number] Self Pay Self N/A Plan of Treatment Future Tests Future scheduled test information is unavailable Pending Tests Pending diagnostic test information is unavailable Future Visits Future appointment information is unavailable Referrals to Other Providers Reason for Referral Referral Start Date Provider Provider Contact Information Provider Address Dominick Hitchcock Work Phone: [phone] [facility] [address] Pablo Carpio Work Phone: [facility] [phone] Future Procedures Future procedure information is unavailable Future Medications Future medication information is unavailable Patient Instructions ED IV SEDATION Adult Social History Assigned Sex Female Vital Signs Vital Reading Result Reference Range Collection Date/Time Height 152.4 cm August 09 9:24am Weight 95.25 kg August 09 9:24am Body Temperature 97.4 [degF] 97.6-99.6 July 11:50am Heart Rate 75 /min 60-90 August 09 11:50am Respiratory rate 18 /min 12-24 July 11:50am Oxygen saturation by Pulse oximetry 96 % 95-100 August 09, 2020 1 1:50am BP Systolic 176 mm[Hg] 90-140 August 09 11:50am BP Diastolic 71 mm[Hg] 60-90 August 09 11:50am BMI (Body Mass Index) 41.0 kg/m2 Bonnie gamboa 2020 9:24am
--- OUTSIDE RECORDS SUMMARY | 2023-08-01 16:52 | XMS_ITS | Continuity of Care Document ---
Author Name Unknown Address [address] [place] [address] Phone [facility] Address [address] [place] [address] Phone Care Team Providers Care Winding Rack Operator Name Role Phone DO Pablo Carpio Primary Care Provider DO Pablo Carpio Attending Provider Chief Complaint and Reason for Visit Chief Complaint chest pain R079 Allergies, Adverse Reactions, Alerts Allergen Type Severity Reaction Last Updated Verified Status hydrocodone Allergy Unknown August 09, 2020 10:25am Y es Active oxycodone Allergy Unknown August 09, 2020 10:25am Yes Active Social History Smoking Status Unknown if ever smoked Additional Data Assigned Sex Female Problems Active Problems Medical Problem Onset Date Status Right carpal tunnel syndrome Act gilmar Medications Medication Status Dose Units Route Directions Qty Days St art Date End Date Instructions Atorvastatin Active 40 MG PO EVERY EVENING August 09, 2020 11:13am Carvedilol (Coreg) 12.5 MG tablet Active 12.5 MG PO DAILY August 09, 2020 11:13am Atorvastatin Discontin ued 10 MG PO EVERY EVENING August 09, 2020 11:13am Januar y 2020 11:14a m Lisinopril (Zestril) 10 MG tablet Active 10 MG PO DAILY August 09, 2020 11:13am Hydrochloroth iazide Active 25 MG PO DAILY@0600 August 09, 2020 11:13am Gabapentin Active 100 MG PO THREE CLAY ES A DAY August 09, 2020 11:13am Procedures Procedure Date Performed Status US transthor echo 2D dop cmp September 29, 2021 11 :02am active Insurance Providers Guarantor Rabia Sandoval Address [address] [facility] [address] Contact Info. Home Phone: Payer Policy Id Coverage Id Subscriber's Name Subscriber Id Effective Date Expiration Date [employer] [id number] Rabia Sandoval [id number] [place] Sr Advantage [id number] Rabia Sandoval [id number] Self Pay Self N/A Encounters Encounter Location(s) Arrival/Admit Date Discharge/Depart Date Provider(s) Departed Clinical [facility] - [place] September 29, 2021 10:42am September 29, 2021 10:43am Pablo Carpio DO
--- OUTSIDE RECORDS SUMMARY | 2023-08-01 16:52 | XMS_ITS | Continuity of Care Document ---
Author Name Unknown Address [address] [place] [address] Phone [facility] Address [address] [place] [address] Phone Care Team Providers Care Senior Cytogenetics Laboratory Director Name Role Phone DO Pablo Carpio Primary Care Provider DO Pablo Carpio Attending Provider [phone] DO Pablo Carpio Family Provider [phone] Chief Complaint and Reason for Visit Chief Complaint R944 Allergies, Adverse Reactions, Alerts Allergen Type Severity [...] ES A DAY August 09, 2020 11:13am Relevant Diagnostic Tests and/or Laboratory Data Laboratory Results Test Date/Time Result Interpretation Reference Range Result Comment Performing Site Blood Urea Nitrogen April 10, 2021 2:37pm 21 mg/dL 7-18 [facility] Creatinine April 10, 2021 2:37pm 1.19 mg/dL 0.50-1.00 [facility] Estimated Creatinine Clearance April 10, 2021 2:37pm Gummed Tape Press Operator Unable to Calculate CRCL,Ht and/or Wt missing [facility] Estimated GFR () April 10, 2021 2:37pm 51 [facility] Estimated GFR (Non- April 10, 2021 2:37pm 44 [facility] Insurance Providers Guarantor Rabia Sandoval Address [address] [place] [address] Contact Info. Home Phone: Payer Policy Id Coverage Id Subscriber's Name Subscriber Id Effective Date Expiration Date [facility] Blue Cross [id number] Rabia Sandoval [id number] [facility] Sr Advantage [id number] Rabia Sandoval [id number] Self Pay Self N/A Encounters Encounter Location(s) Arrival/Admit Date Discharge/Depart Date Provider(s) Departed Clinical [facility] - LAB April 10, 2021 2:28pm April 10, 2021 2:29pm Pablo Carpio DO
--- OUTSIDE RECORDS SUMMARY | 2023-08-01 16:52 | XMS_ITS | Continuity of Care Document ---
Author Name Unknown Address [address] [place] [address] Phone [facility] Address [address] [place] [address] Phone Care Team Providers Care Mixed Crop Farmer Name Role Phone DO Pablo Carpio Primary Care Provider DO Skyler Danielle Attending Provider [phone] Chief Complaint and Reason for Visit Chief Complaint [id number] Allergies, Adverse Reactions, Alerts Allergen Type Severity [...] Interpretation Reference Range Result Comment Performing Site Urine Color May 08, 2022 10:41am Yellow Yellow [facility] Urine Clarity May 08, 2022 10:41am Cloudy Clear [facility] Urine pH May 08, 2022 10:41am 5.0 5.0-8.0 [facility] Urine Specific Ideal May 08, 2022 10:41am 1.025 1.005-1.030 [facility] Urine Blood May 08, 2022 10:41am Negative mg/dL Negative [facility] Urine Protein May 08, 2022 10:41am Trace mg/dl Negative [facility] Urine Glucose (UA) May 08, 2022 10:41am Negative mg/dL Negative [facility] Urine Ketones May 08, 2022 10:41am Trace mg/dL Negative [facility] Urine Nitrate May 08, 2022 10:41am Negative Negative [facility] Urine Bilirubin May 08, 2022 10:41am Negative mg/dL Negative [facility] Urine Urobilinogen May 08, 2022 10:41am 0.2 E.U./dL 0.2 [facility] Urine Leukocyte Esterase May 08, 2022 10:41am Trace mg/dL Negative [facility] Urine RBC (Auto) May 08, 2022 10:41am 0-2 /HPF 0-2 [facility] Urine WBC (Auto) May 08, 2022 10:41am 0-5 /HPF 0-5 [facility] Urine Epithelial Cells (Auto) May 08, 2022 10:41am 11-25 /HPF 0-5 [facility] Urine Casts (Auto) May 08, 2022 10:41am 0-5 /LPF None Seen [facility] Urine Bacteria (Auto) May 08, 2022 10:41am None seen /hpf None Seen [facility] Sodium Level May 08, 2022 10:41am 139 mmol/L 136-145 [facility] Potassium Level May 08, 2022 10:41am 3.8 mmol/L 3.5-5.1 [facility] Chloride Level May 08, 2022 10:41am 108 mmol/L 98-107 [facility] Carbon Dioxide Level May 08, 2022 10:41am 23 mmol/L 21-32 [facility] Anion Gap May 08, 2022 10:41am 12 mmol/L 10-20 [facility] Blood Urea Nitrogen May 08, 2022 10:41am 28 mg/dL 7-18 [facility] Creatinine May 08, 2022 10:41am 1.36 mg/dL 0.50-1.00 [facility] Estimated Creatinine Clearance May 08, 2022 10:41am Crop And Soil Technician Unable to Calculate CRCL,Ht and/or Wt missing [facility] Estimated GFR () May 08, 2022 10:41am 43 [facility] Estimated GFR (Non- May 08, 2022 10:41am 37 [facility] BUN/Creatinine Ratio May 08, 2022 10:41am 20.6 Ratio [facility] Glucose Level May 08, 2022 10:41am 157 mg/dL 70-99 [facility] Calcium Level May 08, 2022 10:41am 9.2 mg/dL 8.5-10.1 [facility] Phosphorus Level May 08, 2022 10:41am 3.1 mg/dL 2.5-4.9 [facility] Albumin May 08, 2022 10:41am 3.7 gm/dL 3.4-5.0 [facility] Urine Random Total Protein May 08, 2022 10:41am 22 mg/dL [facility] Urine Protein/Creatin ine Ratio May 08, 2022 10:41am 0.108 Ratio [facility] Urine Random Microalbumin May 08, 2022 10:41am 5.05 mg/dL [facility] Urine Random Creatinine May 08, 2022 10:41am 208.0 mg/dL [facility] Urine Microalbumin/Cr eatinine Ratio May 08, 2022 10:41am 2.4 mcg/mg 0.0-30.0 [facility] Insurance Providers Guarantor Rabia Sandoval Address [address] [place] [address] Contact Info. Home Phone: Payer Policy Id Coverage Id Subscriber's Name Subscriber Id Effective Date Expiration Date Nicole Juan Cross [id number] Rabia Lori [id number] [facility] Sr Advantage [id number] Rabia Sandoval [id number] Medicare A&B [id number] Rabia Sandoval [id number] Self Pay Self N/A Encounters Encounter Location(s) Arrival/Admit Date Discharge/Depart Date Provider(s) Departed Clinical [facility] - LAB May 08, 2022 10:33am May 08, 2022 10:34am Skyler Danielle DO
--- OUTSIDE RECORDS SUMMARY | 2023-08-01 16:52 | XMS_ITS | Continuity of Care Document ---
Author Name Unknown Address [address] [place] [address] Phone [facility] Address [address] [place] [address] Phone Care Team Providers Care Out Of Town Collection Clerk Name Role Phone Pablo Carpio Primary Care Provider [phone] Hi Hillman Attending Provider [phone] Pablo Carpio Family Provider Dominick Hitchcock Attending [...] was developed and itsperformance characteristics determined by [facility]. Nucleic acid amplification tests include RT-PCR and TMA. This test has not been FDA cleared orapproved. This test has been authorized by FDA under anEmergency Use Authorization (EUA). This test is onlyauthorized for the duration of time the declaration thatcircumstances exist justifying the authorization of theemergency use of in vitro diagnostic tests for detection [id number] virus and/or diagnosis of COVID-19 infectionunder section [...] detected) result in this assay. [facility] (SR) [id number] Advance Directives Advance Directive Response Recorded Date/ Time Advance Directives No August 09, 2020 10:16am Health Care Proxy No August 08, 2020 1:57pm Chief Complaint and Reason for Visit Chief Complaint Pre surgery testing CTS of Right Wrist Reason for Visit Right carpal tunnel syndrome Encounters Encounter Location(s) Arrival/Admit Date Discharge/Depart Date Provider(s) Departed Referred [facility] August 06, 2020 12:54am August 06, 2020 12:55am DIANA Nieto Departed Surgical Day Care [facility] - Main August 09, 2020 9:28am [...] available Insurance Providers Guarantor Rabia Sandoval Address [address] [place] [address] Contact Info. Home Phone: Payer Policy Id Coverage Id Subscriber's Name Subscriber Id Effective Date Expiration Date [employer] [id number] Rabia Garibayrosa [id number] [place] Sr Advantage [id number] Rabia Sandoval [id number] Self Pay Self N/A Plan of Treatment Future Tests Future scheduled test information is unavailable Pending Tests Pending diagnostic test information is unavailable Future Visits Future appointment information is unavailable Referrals to Other Providers Reason for Referral Referral Start Date Provider Provider Contact Information Provider Address Dominick Hitchcock Work Phone: [phone] [facility] [address] Pablo Carpio Work Phone: [address] [facility] [address] Future Procedures Future procedure information is unavailable [...]
--- OUTSIDE RECORDS SUMMARY | 2023-08-01 16:52 | XMS_ITS | Continuity of Care Document ---
Author Name Unknown Address [address] [place] [address] Phone [facility] Address [address] [place] [address] Phone Care Team Providers Care Coordinator Of Genetic Services Name Role Phone DO Pablo Carpio Primary Care Provider [phone] DO Pablo Carpio Attending Provider Chief Complaint and Reason for Visit Chief Complaint i10 Allergies, Adverse Reactions, Alerts Allergen Type Severity [...] Interpretation Reference Range Result Comment Performing Site White Blood Count February 24, 2023 10:45am 5.7 x10E3/uL 3.5-10.5 [facility] [id number] [address] [facility] [address] Red Blood Count February 24, 2023 10:45am 3.98 x10E6/uL 3.80-5.40 [facility] [id number] [address] [facility] [address] Hemoglobin February 24, 2023 10:45am 12.2 gm/dL 12.0-15.5 [facility] [id number] [address] [facility] [address] Hematocrit February 24, 2023 10:45am 37.1 % 34.9-44.5 [facility] [id number] [address] [facility] [address] Mean Corpuscular Volume February 24, 2023 10:45am 93.2 fL 81.6-98.3 [facility] [id number] [address] [facility] [address] Mean Corpuscular Hemoglobin February 24, 2023 10:45am 30.7 pg 26.0-34.0 [facility] [id number] [address] [facility] [address] Mean Corpuscular Hemoglobin Concent February 24, 2023 10:45am 32.9 gm/dL 31.0-37.0 [facility] [id number] [address] [facility] [address] RDW Standard Deviation February 24, 2023 10:45am 43.0 fL 34.7-51.0 [facility] [id number] [address] [facility] [address] RDW Coefficient of Variation February 24, 2023 10:45am 12.7 % 11.7-14.4 [facility] [id number] [address] [facility] [address] Platelet Count February 24, 2023 10:45am 213 x10E3/uL 150-450 [facility] [id number] [address] [facility] [address] Mean Platelet Volume February 24, 2023 10:45am 10.6 fL 9.4-12.4 [facility] [id number] [address] [facility] [address] Immature Granulocyte % (Auto) February 24, 2023 10:45am 0.3 % [facility] [id number] [address] [facility] [address] Neutrophils (%) (Auto) February 24, 2023 10:45am 63.9 % 34.0-71.0 [facility] [id number] [address] [facility] [address] Lymphocytes (%) (Auto) February 24, 2023 10:45am 26.9 % 15.0-44.0 [facility] [id number] [address] [facility] [address] Monocytes (%) (Auto) February 24, 2023 10:45am 5.9 % 0.0-10.0 [facility] [id number] [address] [facility] [address] Eosinophils (%) (Auto) February 24, 2023 10:45am 2.1 % 0.0-7.0 [facility] [id number] [address] [facility] [address] Basophils (%) (Auto) February 24, 2023 10:45am 0.9 % 0.0-2.0 [facility] [id number] [address] [facility] [address] Immature Granulocyte # (Auto) February 24, 2023 10:45am 0.02 x10E3/uL 0.00-0.03 [facility] [id number] [address] [facility] [address] Neutrophils # (Auto) February 24, 2023 10:45am 3.65 x10E3/uL 2.00-7.00 [facility] [id number] [address] [facility] [address] Lymphocytes # (Auto) February 24, 2023 10:45am 1.54 x10E3/uL 0.80-3.70 [facility] [id number] [address] [facility] [address] Monocytes # (Auto) February 24, 2023 10:45am 0.34 x10E3/uL 0.20-0.90 [facility] [id number] [address] [facility] [address] Eosinophils # (Auto) February 24, 2023 10:45am 0.12 x10E3/uL 0.00-0.54 [facility] [id number] [address] [facility] [address] Basophils # (Auto) February 24, 2023 10:45am 0.05 x10E3/uL 0.00-0.20 [facility] [id number] [address] [facility] [address] Nucleated RBC Absolute Count (auto) February 24, 2023 10:45am 0.00 x10E3/uL [facility] [id number] [address] [facility] [address] Nucleated Red Blood Cells % (auto) February 24, 2023 10:45am 0.0 % [facility] [id number] [address] [facility] [address] Urine Color February 24, 2023 10:45am Yellow Yellow [facility] [id number] [address] [facility] [address] Urine Clarity February 24, 2023 10:45am Cloudy Clear [facility] [id number] [address] [facility] [address] Urine pH February 24, 2023 10:45am 5.0 5.0-8.0 [facility] [id number] [address] [facility] [address] Urine Specific Paulina February 24, 2023 10:45am 1.016 1.005-1.03 0 [facility] [id number] [address] [facility] [address] Urine Blood February 24, 2023 10:45am Small mg/dL Negative [facility] [id number] [address] [facility] [address] Urine Protein February 24, 2023 10:45am Negative mg/dl Negative [facility] [id number] [address] [facility] [address] Urine Glucose (UA) February 24, 2023 10:45am Negative mg/dL Negative [facility] [id number] [address] [facility] [address] Urine Ketones February 24, 2023 10:45am Negative mg/dL Negative [facility] [id number] [address] [facility] [address] Urine Nitrate February 24, 2023 10:45am Negative Negative [facility] [id number] [address] [facility] [address] Urine Bilirubin February 24, 2023 10:45am Negative mg/dL Negative [facility] [id number] [address] [facility] [address] Urine Urobilinogen February 24, 2023 10:45am 0.2 E.U./dL 0.2 [facility] [id number] [address] [facility] [address] Urine Leukocyte Esterase February 24, 2023 10:45am Small mg/dL Negative [facility] [id number] [address] [facility] [address] Sodium Level February 24, 2023 10:45am 141 mmol/L 137-146 [facility] [id number] [address] [facility] [address] Potassium Level February 24, 2023 10:45am 3.9 mmol/L 3.5-5.3 [facility] [id number] [address] [facility] [address] Chloride Level February 24, 2023 10:45am 105 mmol/L 98-107 [facility] [id number] [address] [facility] [address] Carbon Dioxide Level February 24, 2023 10:45am 23 mmol/L 22-30 [facility] [id number] [address] [facility] [address] Anion Gap February 24, 2023 10:45am 13 mmol/L 5-15 [facility] [id number] [address] [facility] [address] Blood Urea Nitrogen February 24, 2023 10:45am 27 mg/dL 5-25 [facility] [id number] [address] [facility] [address] Creatinine February 24, 2023 10:45am 1.4 mg/dL 0.5-1.1 [facility] [id number] [address] [facility] [address] Estimated Creatinine Clearance February 24, 2023 10:45am Commissioned Police Officer Unable to Calculate CRCL,Ht and/or Wt missing [facility] [id number] [address] [facility] [address] Estimat Glomerular Filtration Rate February 24, 2023 10:45am 38 >90 Reported eGFR is based on the CKD-EPI 2020 equation that does not use a race coefficient. Additional information can be found at: 1_icb_egfr_s Placements.io_flyer 5.pdf (kidney.org) [facility] [id number] [address] [facility] [address] BUN/Creatinine Ratio February 24, 2023 10:45am 19.3 10.0-20.0 [facility] [id number] [address] [facility] [address] Glucose Level February 24, 2023 10:45am 139 mg/dL 70-100 [facility] [id number] [address] [facility] [address] Calcium Level February 24, 2023 10:45am 9.6 mg/dL 8.6-10.3 [facility] [id number] [address] [facility] [address] Total Bilirubin February 24, 2023 10:45am 0.3 mg/dL <1.1 [facility] [id number] [address] [facility] [address] Aspartate Amino Transf (AST/SGOT) February 24, 2023 10:45am 24 U/L 15-41 [facility] [id number] [address] [facility] [address] Alanine Aminotransferase (ALT/SGPT) February 24, 2023 10:45am 18 U/L 14-54 [facility] [id number] [address] [facility] [address] Total Protein February 24, 2023 10:45am 7.6 g/dL 6.4-8.3 [facility] [id number] [address] [facility] [address] Albumin February 24, 2023 10:45am 4.6 g/dL 4.0-5.0 [facility] [id number] [address] [facility] [address] Globulin February 24, 2023 10:45am 3.0 gm/dl 2.0-3.9 [facility] [id number] [address] [facility] [address] Albumin/Globulin Ratio February 24, 2023 10:45am 1.5 1.0-2.6 [facility] [id number] [address] [facility] [address] Triglycerides Level February 24, 2023 10:45am 181 mg/dL <150 151 - 199 mg/dL = Borderline High [facility] [id number] [address] [facility] [address] Cholesterol Level February 24, 2023 10:45am 163 mg/dL <199 <200 mg/dL = Desirable [facility] [id number] [address] [facility] [address] LDL Cholesterol, Calculated February 24, 2023 10:45am 84 mg/dl <130 [facility] [id number] [address] [facility] [address] HDL Cholesterol February 24, 2023 10:45am 43 mg/dL >40 < 40 mg/dl: Low HDL-choleste rol(major risk factor for CHD)>/= 60 mg/dl: High HDL-choleste rol(negative risk factor for CHD)HDL-chol esterol is affected by a number of factors, e.g., smoking, excercise, hormones, sex and age. [facility] [id number] [address] [facility] [address] Cholesterol/HDL Ratio February 24, 2023 10:45am 3.8 Cholesterol/ HDL Interpretati on: Ratio Men Women 1/2 Average 3.43 3.27 Average 4.97 4.44 2X Average 9.55 7.05 3X Average 23.39 11.04 [facility] [id number] [address] [facility] [address] Alkaline Phosphatase February 24, 2023 10:45am 65 U/L 35-104 [facility] [id number] [address] [facility] [address] Thyroid Stimulating Hormone (TSH) February 24, 2023 10:45am 2.43 uIU/mL 0.34-5.60 [facility] [id number] [address] [facility] [address] Insurance Providers Guarantor Rabia Sandoval Address [address] [place] [address] Contact Info. Home Phone: Payer Policy Id Coverage Id Subscriber's Name Subscriber Id Effective Date Expiration Date [facility] Blue Cross [id number] Rabia Sandoval [id number] [facility] Sr Advantage [id number] Rabia Sandoval [id number] Medicare A&B [id number] Rabia Sandoval [id number] Self Pay Self N/A Encounters Encounter Location(s) Arrival/Admit Date Discharge/Depart Date Provider(s) Departed Clinical [facility] - LAB February 24, 2023 10:36am February 24, 2023 10:37am Pablo Carpio DO
--- OUTSIDE RECORDS SUMMARY | 2023-08-01 16:52 | XMS_ITS | Continuity of Care Document ---
Author Name Unknown Address [address] [place] [address] Phone [facility] Address [address] [place] [address] Phone Care Team Providers Care Area Cleaner Name Role Phone DO Pablo Carpio Primary Care Provider [phone] DO Pablo Carpio Attending Provider Chief Complaint and Reason for Visit Chief Complaint chest pain R079 chest pain Allergies, Adverse Reactions, Alerts Allergen Type Severity [...] dop cmp September 29, 2021 11 :02am completed NM elmer perf SPECT rest and str October 02, 2021 8:33am active Exercise Stress Test October 14, 2021 8:22am acti ve Relevant Diagnostic Tests and/or Laboratory Data Diagnostic Imaging Reports Report Dictated Date/Time Dictated By Status Radiology Report September 29, 2021 11:07am Sumit Prakash MD completed [facility] [address] [address] Patient Name: Rabia Sandoval Medical Record#: [id number] Address: [address] [place] [address] City/State/Zip: [place] [address]: Pablo sinha DO Insurance: [employer] [place] Sr Adva ntage /Age/Sex: 1945/76/F Self Pay Admit/Reg Date: 09/29/[address]: Pablo Carpio DO [facility] PCP: Pablo Carpio DO Date of Service: 09/29/21 Order (s): US transthor echo 2D dop cmp CPT Code: 43427 Report Number: [id number] Reason for Exam: CHEST PAIN Transthoracic Echocardiography Report (TTE) Demographics Patient Name Lori Camarillo Gender Female MR Number [id number] Date of 1945 Age 76 year(s) Room Number Height 65 inches Date of study 09/29/2021 Weight 245 pounds Referring BSA 2.16 m^2 Interpreting MD Sumit Prakash MD BMI 40.77 kg/m^2 Fellow Painting And Coating Worker Alicia Syed [facility] Conclusions Summary EF Estimated: 55% Mild mitral regurgitation. No mitral valve stenosis. No aortic stenosis. Trivial aortic regurgitation. Leaflets of aortic valve are mildly calcified Mild tricuspid regurgitation. Pulmonary artery systolic pressure is estimated to be normal (<36 mmHg). TV is poorly visualized The pulmonic valve is poorly visualized. No pulmonary stenosis. Left atrium is normal in size. Right atrium is normal in size. Left ventricular cavity is mildly enlarged. Left ventricular systolic function is normal (LVEF 55%). No left ventricular hypertrophy. Right ventricular structure and systolic function are normal. Aorta: root (at sinuses of Valsalva) is normal in diameter, ascending aorta is normal in diameter. Findings MITRAL VALVE: Mild mitral regurgitation. No mitral valve stenosis. Mitral annulus is mildly calcified. Leaflets of the mitral valve are mildly thickened. AORTIC VALVE: No aortic stenosis. Trivial aortic regurgitation. Leaflets of aortic valve are mildly calcified TRICUSPID VALVE: Mild tricuspid regurgitation. Pulmonary artery systolic pressure is estimated to be normal (<36 mmHg). TV is poorly visualized PULMONIC VALVE: The pulmonic valve is poorly visualized. No pulmonary stenosis. ATRIA: Left atrium is normal in size. Right atrium is normal in size. LEFT VENTRICLE: Left ventricular cavity is mildly enlarged. Left ventricular systolic function is normal (LVEF 55%). No left ventricular hypertrophy. EF ESTIMATED: 55% RIGHT VENTRICLE: Right ventricular structure and systolic function are normal. MISCELLANEOUS: Aorta: root (at sinuses of Valsalva) is normal in diameter, ascending aorta is normal in diameter. Type of Study TTE procedure: US transthor echo 2D dop cmp ([place]). Technical Quality: Adequate visualizationStudy Location: Echo Lab Indications: 10 - Chest Pain, Unspecified - R07.9. Patient Status: Routine HR: 65 bpm Atria LA Dimension: 3.1 cm LA/Aorta: 1.27 LA Volume/Index: 42.63 ml /20m^2 Left Ventricle Diastolic Dimension: 5.69 cm Systolic Dimension: 3.81 cm Septum Diastolic: 1.01 cm PW Diastolic: 0.97 cm FS: 33.04 % EF Estimated: 55% LV ESV/LV ESV Index: 40.61 ml/19 m^2 LV EDV/LV EDV Index: 86.68 ml/40 m^2 LV Length: 7.46 cm CI: 1.9 l/min*m^2 CO: 4.11 l/min IVRT: 87.66 msec Right Ventricle Diastolic Dimension: 2.31 cm Miscellaneous Aorta Aortic Root: 2.45 cm Mitral Valve Peak E-Wave: 75.86 cm/s Peak A-Wave: 104.92 cm/s P1/2t: 55.43 msec E/A Ratio: 0.72 Peak Gradient: 2.3 mmHg Area (PHT): 3.97 cm^2 Deceleration Time: 191.15 msec Aortic Valve Peak Velocity: 143.49 cm/s Mean Velocity: 102.55 cm/s Peak Gradient: 8.24 mmHg Mean Gradient: 4.72 mmHg Area (continuity): 2.12 cm^2 AV VTI: 29.79 cm Cusp Separation: 1.55 cm Tricuspid Valve TR Velocity: 284.9 cm/s TR Gradient: 32.47 mmHg Pulmonic Valve Peak Velocity: 75.39 cm/s Peak Gradient: 2.27 mmHg LVOT Peak Velocity: 85.75 cm/s Mean Velocity: 57.04 cm/s Peak Gradient: 2.94 mmHg Mean Gradient: 1.52 mmHg LVOT Diameter: 1.98 cm LVOT VTI: 20.53 cm Signature Dictated By: Sumit Prakash MD 09/29/211106 Signed By: Sumit Prakash MD 10/07/212024 TD/TT: 09/29/211106Tech: [id number] cc: [id number]* Pablo Carpio DO Insurance Providers Guarantor Rabia Sandoval Address [address] [place] [id number] Contact Info. Home Phone: Payer Policy Id Coverage Id Subscriber's Name Subscriber Id Effective Date Expiration Date [facility] Blue Cross [id number] Rabia aSndoval [id number] [place] [employer] Ad[employer] [id number] Rabia Sandoval [id number] Self Pay Self N/A Encounters Encounter Location(s) Arrival/Admit Date Discharge/Depart Date Provider(s) Departed Clinical [facility] [place] September 29, 2021 10:42am September 29, 2021 10:43am Pablo Carpio DO Departed Clinical [facility] [place] October 02, 2021 8:13am October 14, 2021 8:23am Pablo Carpio DO
--- OUTSIDE RECORDS SUMMARY | 2023-08-01 16:52 | XMS_ITS | Continuity of Care Document ---
Author Name Unknown Address [address] [place] [address] Phone [facility] Address [address] [place] [address] Phone Care Team Providers Care Generator Mechanic Name Role Phone DO Pablo Carpio Primary Care Provider DIANA Robertson Attending Provider Chief Complaint and Reason for Visit Chief Complaint [id number] Allergies, Adverse Reactions, Alerts Allergen Type Severity [...] Interpretation Reference Range Result Comment Performing Site Creatinine December 10, 2021 10:51am 1.31 mg/dL 0.50-1.00 [facility] Estimated Creatinine Clearance December 10, 2021 10:51am Stockbroking Dealer Unable to Calculate CRCL,Ht and/or Wt missing [facility] Estimated GFR () December 10, 2021 10:51am 45 [facility] Estimated GFR (Non- December 10, 2021 10:51am 39 [facility] Insurance Providers Guarantor Rabia Sandoval Address [address] [place] [id number] Contact Info. Home Phone: Payer Policy Id Coverage Id Subscriber's Name Subscriber Id Effective Date Expiration Date [employer] [id number] Rabia Sandoval [id number] [place] [employer] Advantage [id number] Rabia Sandoval [id number] Self Pay Self N/A Encounters Encounter Location(s) Arrival/Admit Date Discharge/Depart Date Provider(s) Departed Clinical [facility] December 10, 2021 10:40am December 10, 2021 10:41am DIANA Murray Plan of Treatment Future Tests Future scheduled test information is unavailable Pending Tests Pending diagnostic test information is unavailable Future Visits Future appointment information is unavailable Referrals to Other Providers Referral information is unavailable Future Procedures Procedure Name Scheduled Date Exercise Stress Test October 14, 2021 8:2 2am Future Medications Future medication information is unavailable Patient Instructions Patient instructions are unavailable
--- OUTSIDE RECORDS SUMMARY | 2023-08-01 16:52 | XMS_ITS | Continuity of Care Document ---
Author Name Unknown Address [address] [place] [address] Phone [facility] Address [address] [place] [address] Phone Care Team Providers Care Teenage Program Director Name Role Phone Pablo Carpio Primary Care Provider Hi Hillman Attending Provider Allergies, Adverse Reactions, Alerts No allergy information available. Medications No medication information available. Problems No problem information available. Chief Complaint and Reason for Visit Chief Complaint Pre surgery testing Encounters Encounter Location(s) Arrival/Admit Date Discharge/Depart Date Provider(s) Departed Referred [facility] August 06, 2020 12:54am August 06, 2020 12:55am DIANA Nieto Assessments No Assessments Information Available Functional Status No Functional Status information available Goals Goals may be documented in an alternate section. Mental Status No Mental Status Information Available Medical Equipment No Medical Equipment Information available Insurance Providers Guarantor Rabia Garibayrosa Address [address] [place] [phone] Contact Info. Home Phone: Payer Policy Id Coverage Id Subscriber's Name Subscriber Id Effective Date Expiration Date [facility] Blue Cross [id number] Rabia Sandoval [id number] [place] Sr Advantage [id number] Rabia Sandoval [id number] Self Pay Self N/A Social History Assigned Sex Female
[2023-08-01 16:53] LABS: Lab Add On Test DONE
[2023-08-01] MEDS: Lactated Ringers 1,000 ML 125 ML IV (17:16)
[2023-08-01 17:26] LABS: Creatine Kinase 73 U/L (26-192)
[2023-08-01] MEDS: Heparin 5,000 UNITS/ML VIAL 5000 UNITS SC (18:04)
[2023-08-01] MEDS: Carvedilol 25 MG TAB PO (20:29)
[2023-08-01] MEDS: Normal Saline Flush 10 ML SYR IVP (22:00)
[2023-08-02] MEDS: Lactated Ringers 1,000 ML 125 ML IV (01:19)
[2023-08-02] MEDS: Heparin 5,000 UNITS/ML VIAL 5000 UNITS SC ×3 (03:11→18:13)
[2023-08-02 03:26] VITALS: BP 132/70; PULSE 70; RESP 18; TEMP 36.7; O2SAT 97
[2023-08-02 06:51] LABS: Abs Immature Grans 0.01 10^3/uL (0.0-0.06); Absolute Basophil Count 0.03 10^3/uL (0.0-0.2); Absolute Eosinophil Count 0.06 10^3/uL (0.0-0.7); Absolute Lymphocyte Count 1.29 10^3/uL (1.2-3.4); Absolute Monocyte Count 0.29 10^3/uL (0.1-0.8); Absolute Neutrophil Count 4.76 10^3/uL (1.2-6.7); Basophils % 0.5; Eosinophils % 0.9; HCT 32.1 % (36.0-46.0); HGB 10.5 g/dL (11.2-15.7); Immature Grans % 0.2; MCH 29.3 pg (27.0-33.0); MCHC 32.7 % (32.0-36.0); MCV 90 fL (80-95); MPV 10.4 fL (8.0-11.0); Monocytes % 4.5; Neutrophils % 73.9; Platelet Count 188 10^3/uL (130-400); RBC 3.58 10^6/uL (3.93-5.22); RDW 12.8 % (11.7-14.6); RDW-SD 41.8 fL; WBC 6.44 10^3/uL (4.4-10.8)
[2023-08-02 07:20] LABS: C Diff PCR Negative (Negative)
[2023-08-02 07:21] LABS: Anion Gap 14.3 mmol/L (3-11); CO2 17.7 mmol/L (21.0-32.0); CREATININE 1.8 mg/dL (0.55-1.02); Chloride 110 mmol/L (98-107); Estimated GFR 28.31 (mL/min/1.73m2); Glucose 106 mg/dL (74-106); Magnesium 1.8 mg/dL (1.8-2.4); Potassium 3.4 mmol/L (3.5-5.1); Sodium 142 mmol/L (136-145)
[2023-08-02 07:24] LABS: BUN 83 mg/dL (7-18)
[2023-08-02] MEDS: Meclizine 12.5 MG TAB PO ×3 (08:04→21:13)
[2023-08-02] MEDS: Carvedilol 25 MG TAB PO ×2 (08:05→21:13)
[2023-08-02] MEDS: Atorvastatin 40 MG TAB 80 MG PO (08:05)
[2023-08-02] MEDS: Multivitamin TAB 1 TAB PO (08:05)
[2023-08-02] MEDS: Aspirin 81 MG CHEW PO (08:05)
[2023-08-02] MEDS: Normal Saline Flush 10 ML SYR IVP ×3 (08:05→21:13)
[2023-08-02 08:20] VITALS: BP 152/73; PULSE 75; RESP 17; TEMP 36.4; O2SAT 100
--- NOTE | 2023-08-02 09:35 | INITIAL_ITS ---
Date of service: 08/02/23 Time of Service: 09:35 Care Management Initial Assmt Initial Assessment REASON FOR HOSPITALIZATION:: Uti PREVIOUS FUNCTIONAL STATUS/SOCIAL/FAMILY SUPPORTS:: Rabia Fong lives in [place], [place] and is in [place] visiting her son. She is , having lost her in April. Rabia Fong also has 2 daughters that live in [place], 9 grandchildren and 2 great grandchildren. She is independent at baseline and does not receive any community services. CURRENT FUNCTIONAL STATUS:: Rabia Fong was lying in bed when CM met with her. She stated that she is feeling better than when she was first admitted. Rabia Fong lost her in April, unexpectedly. While he had chronic health issues (on dialysis) his was the result of a cardiac arrest during a colonoscopy. He was successfully resuscitated twice but eventually form the event. She shared that her grief is getting worse, not better, with the passing of time. She verbalized that she realizes that she needs help dealing with his and plans to join a grief support group when she returns to [place]. Rabia Fong explained that although they have 2 daughters who live in [place], they are each about an hour and a half away so that visits are not that frequent. She and her Isaac relied just on each other for most things and she was his caregiver. Rabia Fong plans to return home to [place] at the end of this week. ADVANCE DIRECTIVES:: none Has patient been provided with info about the portal/API?: Yes Did the patient sign up for the portal?: No CODE STATUS:: Full Code INSURANCE COVERAGE / FINANCIAL ISSUES:: BC/BS out of state CURRENT HOME/COMMUNITY SERVICES/EQUIPMENT:: none PRIMARY CARE PHYSICIAN:: none local, lives in [place]. Dr. Pablo Carpio MD is her PCP in [place], [place]. She is with the [facility]. POTENTIAL DISCHARGE NEEDS:: follow up with community providers PATIENT/FAMILY EDUCATION NEEDS:: Review of discharge instructions, activity, limitations, follow up plan, discuss Ask Me Three TRANSPORTATION:: via private vehicle with family PLAN:: Anticipate Caroline will be discharged back to her son's home when medically cleared by provider. She will follow up with the provider assigned and transport with family. CM will follow and continue to assess for discharge needs. PFSH All Active Problems (Updated 08/01/23 @ 16:13 by Lamar Johnson MD) Discharge planning issues (Acute) DVT prophylaxis (Acute) Diarrhea (Acute) CAD (coronary artery disease) (Chronic) Dehydration (Acute) Acute UTI (Acute) Grief reaction (Chronic) Acute renal failure (Acute) Dizziness (Acute) Colloid cyst of brain (Acute) Hypertension (Chronic) Medical History (Updated 08/01/23 @ 16:13 by Lamar Johnson MD) Vertigo Surgical History (Updated 08/01/23 @ 20:04 by Lamar Johnson MD) History of total right knee replacement H/O shoulder surgery R shoulder History of carpal tunnel surgery of right wrist H/O cardiac catheterization stents x 5 in 2009 Family History Father Heart disease Paternal Grandmother Diabetes Social History (Updated 08/01/23 @ 20:05 by Lamar Johnson MD) Smoking/Tobacco Use Status: Never Smoking risk assessment performed?: Yes Alcohol Intake: current Alcohol Intake frequency: holidays/special occasions only Drug use: Never Substance use type: does not use Housing: house SDOH(Care Management) Screening Will the Patient Participate in the Screening?: Yes Do you worry about having a steady place to live?: no In the past 12 months, have you had to go without electric, gas, oil or water in your home?: no Have you or anyone in your house had to go without enough food to eat?: no Has lack of transportation kept you from medical appointments or from doing things needed for daily living?: no Has anyone in your support network made you feel unsafe for any reason?: no Health Related Social Needs Health related social needs details: no needs
[2023-08-02] MEDS: POTASSIUM CHLORIDE 20 MEQ/100 ML BAG 50 MEQ IVPB (09:37)
[2023-08-02] MEDS: Loperamide 2 MG CAP PO (09:37)
[2023-08-02 11:27] VITALS: BP 134/66; PULSE 73; RESP 18; TEMP 36.4; O2SAT 97
[2023-08-02] MEDS: cefTRIAXone 1 GM/50 ML BAG IVPB (13:56)
--- NOTE | 2023-08-02 14:20 | PT.INIE ---
PT Notes Visit Reasons: UTI,FANNY,Dehydration Physical Therapy Inpatient Initial Evaluation Date: 08/02/2023 Referring Doctor: Naty Johnson MD PT Orders: PT CONSULT: Limited ability Precautions: Fall. Standard. Activity as tolerated. Patient Profile/Admitting Diagnosis: Rabia is a 77-year-old recently female who was admitted to the ED on 08/01/2024 due to dizziness, fatigue, malaise, and dark bloody stools. Patient is admitted to [facility] for management of acute urinary tract infection, acute renal failure, dizziness, diarrhea, colloid cyst of brain, CAD, and dehydration. PMHX: All Active Problems (Updated 08/01/23 @ 16:13 by Lamar Johnson MD) Discharge planning issues (Acute) DVT prophylaxis (Acute) Diarrhea (Acute) CAD (coronary artery disease) (Chronic) Dehydration (Acute) Acute UTI (Acute) Grief reaction (Chronic) Acute renal failure (Acute) Dizziness (Acute) Colloid cyst of brain (Acute) Hypertension (Chronic) Medical History (Updated 08/01/23 @ 16:13 by Lamar Johnson MD) Vertigo Surgical History (Updated 08/01/23 @ 20:04 by Lamar Johnson MD) History of total right knee replacement H/O shoulder surgery R shoulderHistory of carpal tunnel surgery of right wrist H/O cardiac catheterization stents x 5 in 2009 Social History/Home Situation: Recently . Visiting son from [place], been here since before Cecy. Independent with all aspects of ADLs prior to admission. Per son mother uses [employer] outdoors. Son's house has 3 steps to enter. Equipment Owned/DME: [employer] in [place] Subjective: Still reports dizziness at rest and with movement. Feels shaky and weak for the past 2 weeks. has not had any appetite. Afraid about drinking too much as she feels she just will go to the bathroom. Almost got tearful talking about recent passing of . Objective: General Observation: Resting in bed. Son Celestine present in room throughout session. Mental Status: Alert and oriented as to person, place, time, and purpose. Able to pay attention, focus, and respond appropriately. Pain: Denies Vital Signs: Closely monitored by nursing staff ROM: Right Upper Extremity: Shoulder Flexion WFL. Shoulder abduction WFL. Elbow flexion WFL. Wrist flexion WFL. Functional opening and closing of hand WFL. Left Upper Extremity: Shoulder Flexion WFL. Shoulder abduction WFL. Elbow flexion WFL. Wrist flexion WFL. Functional opening and closing of hand WFL. Right Lower Extremity: Hip flexion WFL. Hip abduction WFL. Knee flexion WFL. Ankle dorsiflexion WFL. Ankle plantarflexion WFL. Left Lower Extremity: Hip flexion WFL. Hip abduction WFL. Knee flexion WFL. Ankle dorsiflexion WFL. Ankle plantarflexion WFL. Strength: Right Upper Extremity: Shoulder flexors 4-/5. Shoulder abductors 4-/5. Elbow flexors 4-/5. Elbow extensors 4-/5. Internal Auditor strong. Left Upper Extremity: Shoulder flexors 4-/5. Shoulder abductors 4-/5. Elbow flexors 4-/5. Elbow extensors 4-/5. Internal Auditor strong. Right Lower Extremity: Hip flexors 4-/5. Hip abductors 4/5. Knee flexors 4-/5. Knee extensors 4-/5. Ankle dorsiflexors 4-/5. Ankle plantarflexors 4-/5. Left Lower Extremity: Hip flexors 4-/5. Hip abductors 4/5. Knee flexors 4-/5. Knee extensors 4-/5. Ankle dorsiflexors 4-/5. Ankle plantarflexors 4-/5. Bed Mobility/Transfers: Minimal cueing provided for use of B hands as needed for support, movement sequence, AD management, and and posture to reduce fall risk and minimize pain report Rolling independent Supine to sit independent Sit to supine independent Sit to stand supervision Stand to sit supervision Bed to reclining chair stand by assist Reclining chair to bed stand by assist Gait: Facilitated safe and correct short in room level surface ambulation: Just holding onto the IV pole with observed unsteadiness and worse dizziness in patient. No SOB. [place] more stable and secure using front-wheeled walker and was able to cover a distance of about 80 feet with standby assist and minimal cueing provided for use of B hands as needed for support, movement sequence, AD management, and and posture to reduce fall risk. Mild SOB resolved with rest. Balance: Static Sitting: Normal Dynamic Sitting: Normal Static Standing: Fair Dynamic Standing: Fair Special Tests: Mobility Limitations Standardized Measure [employer] AM-PAC 6 clicks Basic Mobility Inpatient Short Form: Raw Score: 22 CMS Score: 21% deficit Informed Consent/Education: Patient was instructed in purpose of PT consult and plan of care. Agreeable to proceed with established PT POC to achieve personal goals. ASSESSMENT: Still grieving. Dizzy at rest and with movement but tolerated hallway ambulation using FWW. Has not had appetite since two weeks ago and may be contributing to ongoing weakness and decreaed activity tolerance. Patient presents with clinical signs and symptoms consistent with current/admitting diagnoses that have resulted to mobility limitations, gait instability, generalized weakness, and overall ADL decline as demonstrated by the following impairment level findings: 1. Decreased strength to B UE/LE major muscle groups 2. Impaired sitting/standing balance 3. Impaired activity tolerance 5. Shortness of breath Impairments are contributing to the following functional limitations: 1. Difficulty with ambulation without assistive device 2. Increased completion time for mobility ADL performance 3. Increased risk for falls 4. Difficulty with managing steps alone safely Patient is assessed as a 030[address] moderate complexity based on the following: History: 77-year-old female with past medical history as indicated above Examination: Demonstrable impairment in strength, balance, and mobility level with underlying impairments and functional limitations as exhibited above as well as deficit score of 21% utilizing the [facility] Mobility Inpatient Short Form Presentation: Evolving Decision Makin moderate complexity Goals: Goals X1 week 1. Supine-Sit independent 2. Sit-Supine independent 3. Sit-Stand independent 4. Stand-Sit independent with no AD 5. Bed-Chair independent with no AD 6. Chair-Bed independent with no AD 7. Independent gait on level surface with use of FWW for at least 300 feet without report of pain nor dyspnea 8. Independent stair negotiation while holding onto B rails for at least 3 steps without report of pain nor dyspnea 9. Independent with home exercise program 10. Good static and dynamic standing balance/tolerance Plan of Care/Treatment Plan: 1-2x/day, 7 days/week x 1 week. Plan of care has been reviewed with the MANUFACTURING TECHNICIAN providing the service under Physical Therapy direction. Initiate Physical Therapy intervention for pain management as needed, strengthening, bed mobility, transfers, gait, stairs, balance training, and use of assistive device. DISCHARGE RECOMMENDATIONS: [] Home with no services [] [X] Home with services. Patient will benefit from home health PT services in order to progress mobility level using least restrictive assistive ambulatory device, assess home safety, identify additional equipment needs, and establish a functional maintenance program that will increase ability of patient to remain at home. [] Home with outpatient PT [] [] SNF for continued rehabilitation [] [] Clerical Investigator Care [] [] SNF versus LTC based on ability to participate and progress [] TREATMENT CODE/TIME: 9716 2 x 21 minutes for 1 unit beginning at 14:20 PM. Thank you for the opportunity to participate in the care of this patient. Yi Heard PT, DPT, CLT [facility] [place], [place]
[2023-08-02 14:58] VITALS: BP 129/70; PULSE 75; RESP 18; TEMP 35.8; O2SAT 97
[2023-08-02] MEDS: LORazepam 2 MG/ML VIAL 0.5 MG IVP (15:33)
[2023-08-02] MEDS: Ondansetron 4 MG/2 ML VIAL IVP (18:14)
[2023-08-02 20:25] VITALS: BP 147/71; PULSE 84; RESP 21; TEMP 37.6; O2SAT 97
--- NOTE | 2023-08-02 21:49 | PGE_ITS ---
Date of Service Date of service: 08/02/23 Time of Service: 18:00 Assessment and Plan Assessment and plan (1) Acute UTI: Status: Acute Assessment and plan: Present on admission. Evidently, the sample was not cultured because of sq cell contamination. Does have evidence of a stone in her bladder. Culture urine today, but the patient has been on abx. Continue empiric ceftriaxone and IV hydration. (2) Acute renal failure: Status: Acute Assessment and plan: Appears to be pre-renal. IMproved w/ IVF. Continue hydration. Hold lisinopril and chlorthalidone. Hold NSAIDs. (3) Dizziness: Status: Acute Assessment and plan: W/ h/o vertigo. Continue meclizine, lorazepam, PT Consulted. Doubt that this is related to the colloidal cyst. Neurosurgery also does not believe that the two are related. MRI brain is pending for tomorrow. (4) Diarrhea: Status: Acute Assessment and plan: C. diff negative. Await stool studies. Continue probiotics. Continue pnr loperamide. (5) Colloid cyst of brain: Status: Acute Assessment and plan: Outpatient follow up, per [facility] neurosurgery. Await MRI brain w/w/o contrast per NS recommendations. (6) CAD (coronary artery disease): Status: Chronic Assessment and plan: Continue aspirin, statin, coreg. Hold lisinopril in setting of FANNY. (7) Hypertension: Status: Chronic Assessment and plan: As above Hold chlorthalidone and lisinopril. (8) Dehydration: Status: Acute Assessment and plan: Hydrate with Lactate ringers. (9) Grief reaction: Status: Chronic Assessment and plan: The patient lost her in April. We will provide counseling resources in the community. (10) DVT prophylaxis: Status: Acute Assessment and plan: SC heparin (11) Discharge planning issues: Status: Acute Assessment and plan: Full code by default The patient is not actually sure about her code status. PT on board. Will need neurosurgical follow up. Anticipate discharge home in the next 24-48 hrs. Subjective Subjective Interval history since last seen: Feels better. More energy, less dizzy. Still some nausea. Diarrhea has slowed down significantly. No CP, SOB. Walked with PT. Exam Narrative Exam Narrative: General: A pleasant elderly female who looks better, A&Ox3, NAD HEENT: EOMI, MMM Cardiovascular: RRR, no m/r/g Lungs: CTAB Gastrointestinal: soft, nonteder, nondistended Extremities: no edema BLEs Objective Last Vital Signs Temp 37.6 C H 08/02/23 20:25 Pulse 84 08/02/23 20:25 Resp 21 08/02/23 20:25 BP 147/71 H 08/02/23 20:25 Pulse Ox 97 08/02/23 20:25 Laboratory Results - last 24 hr 08/02/23 08/02/23 05:54 06:20 WBC 6.44 RBC 3.58 L Hgb 10.5 L Hct 32.1 L MCV 90 MCH 29.3 MCHC 32.7 RDW 12.8 Plt Count 188 MPV 10.4 Immature Gran % 0.2 Neutrophils % 73.9 Lymphocytes % 20.0 Monocytes % 4.5 Eosinophils % 0.9 Basophils % 0.5 Nucleated RBC % 0.0 Absolute Neutrophils 4.76 Absolute Lymphocytes 1.29 Absolute Monocytes 0.29 Absolute Eosinophils 0.06 Absolute Basophils 0.03 Sodium 142 Potassium 3.4 L Chloride 110 H Carbon Dioxide 17.7 L Anion Gap 14.3 H BUN 83 H* Creatinine 1.8 H D Est GFR (CKD-EPI 2020) 28.31 Glucose 106 Calcium 9.0 Magnesium 1.8 Stl C.difficile Tox PCR Negative Time Spent with Patient Time Spent with Patient: 25-34 minutes Time was spent: preparing to see the patient(eg.review tests), obtaining and/or reviewing separately otained hiistory, ordering medications,tests, procedures, referring, communicating with other health intensive care nurse, indepentently interpreting results, counseling the patient and care coordination
[2023-08-02 23:11] LABS: Campylobacter PCR Negative (Negative); Salmonella PCR Negative (Negative); Shiga Toxin PCR Negative (Negative); Shigella/Enteroinvasive Ecoli Negative (Negative)
[2023-08-03] VITALS (8 sets, daily range): BP systolic 118–167; BP diastolic 64–79; PULSE 71–84; RESP 15–20; TEMP 36.8–37.8; O2SAT 95–99
[2023-08-03] MEDS: Heparin 5,000 UNITS/ML VIAL 5000 UNITS SC ×3 (01:32→18:09)
[2023-08-03] MEDS: Meclizine 12.5 MG TAB PO ×2 (07:32→13:42)
[2023-08-03] MEDS: Normal Saline Flush 10 ML SYR IVP ×2 (07:33→20:07)
[2023-08-03] MEDS: Multivitamin TAB 1 TAB PO (07:33)
[2023-08-03] MEDS: Carvedilol 25 MG TAB PO ×2 (07:33→20:07)
[2023-08-03] MEDS: Atorvastatin 40 MG TAB 80 MG PO (07:33)
[2023-08-03] MEDS: Aspirin 81 MG CHEW PO (07:33)
[2023-08-03 07:42] LABS: Abs Immature Grans 0.02 10^3/uL (0.0-0.06); Absolute Basophil Count 0.02 10^3/uL (0.0-0.2); Absolute Lymphocyte Count 1.23 10^3/uL (1.2-3.4); Absolute Monocyte Count 0.35 10^3/uL (0.1-0.8); Absolute Neutrophil Count 3.44 10^3/uL (1.2-6.7); Basophils % 0.4; Eosinophils % 1.9; HCT 29.1 % (36.0-46.0); HGB 9.5 g/dL (11.2-15.7); Immature Grans % 0.4; Lymphocytes % 23.8; MCH 29.4 pg (27.0-33.0); MCHC 32.6 % (32.0-36.0); MCV 90 fL (80-95); MPV 10.8 fL (8.0-11.0); Monocytes % 6.8; Neutrophils % 66.7; Platelet Count 168 10^3/uL (130-400); RBC 3.23 10^6/uL (3.93-5.22); RDW 12.8 % (11.7-14.6); WBC 5.16 10^3/uL (4.4-10.8)
--- NOTE | 2023-08-03 08:00 | DI.MRI_ITS ---
Exam(s) MR BRAIN WO EXAM: MR BRAIN WO CLINICAL HISTORY: Colloidal cyst at foramen of Monro TECHNIQUE: Multiplanar multisequence MRI of the brain was performed. COMPARISON: CT CT HEAD WO from 08/01/2023 FINDINGS: The examination is limited due to patient motion artifact. VENTRICLES AND EXTRA AXIAL SPACES: Normal in size and morphology for the patient's age. There is a 5. 4 mm well-circumscribed lesion in the foramen of Monro corresponding to the finding seen on the CT sc an and most consistent with a colloid cyst. It is hypointense on the T1 weighted images and T2 weigh you images. There is no dilatation of the ventricles. MIDLINE SHIFT: None. CEREBRAL PARENCHYMA: No focus of restricted diffusion to suggest acute infarct. No space-occupying le elvis identified. There are few foci of hyperintense T2 signal on the FLAIR and T2 weighted images mos t consistent with small vessel ischemic disease. HEMORRHAGE: None. BRAINSTEM/CEREBELLUM: Normal. CALVARIUM: Normal. VISUALIZED PARANASAL SINUSES/MASTOIDS:Clear. [place]: Normal flow void. PITUITARY GLAND: There is a partially empty sella. OTHER FINDINGS: None. IMPRESSION: 1. 5.4 cm well-circumscribed lesion in the foramen of Monro most suggestive of a colloid cyst. There is no hydrocephalus. 2. Mild small vessel ischemic disease and age-appropriate cerebral atrophy. 3. Partially empty pituitary sella. 4. No evidence of an acute infarct. DATA REPOSITORY:
[2023-08-03 08:06] LABS: Anion Gap 12.3 mmol/L (3-11); BUN 50 mg/dL (7-18); CO2 20.7 mmol/L (21.0-32.0); CREATININE 1.4 mg/dL (0.55-1.02); Calcium 8.7 mg/dL (8.5-10.1); Chloride 111 mmol/L (98-107); Estimated GFR 38.27 (mL/min/1.73m2); Glucose 146 mg/dL (74-106); Magnesium 1.3 mg/dL (1.8-2.4); Potassium 3.6 mmol/L (3.5-5.1); Sodium 144 mmol/L (136-145)
[2023-08-03] MEDS: Loperamide 2 MG CAP PO (08:58)
[2023-08-03] MEDS: Magnesium Chloride 64 MG TABCR PO ×2 (09:56→20:07)
[2023-08-03] MEDS: MAGNESIUM SULFATE 4 GM/100 ML BAG IVPB (09:57)
[2023-08-03] MEDS: LORazepam 2 MG/ML VIAL 1 MG IVP (10:46)
--- NOTE | 2023-08-03 11:36 | PDOC.CMPRO ---
Date of service: 08/03/23 Time of Service: 11:36 Care Management Progress Note Progress Note Text Progress Note Text: S/O:Rabia Fong was sitting up on the side of the bed visiting with her grandson when CM met with her. She informed CM that she is feeling better but continues to look very sad. Both Rabia Fong and her grandson had questions and asked to speak to the provider. The provider met with both of them and then called Rabia Fong's granddaughter who is an AIRCRAFT SKIN BURNISHER, at their request. An update was provided and questions were answered. Clinically, Rabia Fong is improving. She is less dizzy and has less nausea and no diarrhea since this morning. A: Rabia is a 77 year old woman admitted on 08/01/23 with diarrhea, FANNY and dehydration P:Anticipate Rabia will be discharged back to her son's home when medically cleared by provider. She will follow up with the provider assigned and transport with family. CM will follow and continue to assess for discharge needs.
--- NOTE | 2023-08-03 12:51 | PT.INVERTIGO ---
PT Notes Visit Reasons: UTI,FANNY,Dehydration Physical Therapy Supplemental Evaluation for Vertigo Date: 08/03/2023 Referring Doctor: Lamar Johnson MD PT Orders: Per verbal order of Dr. Johnson this afternoon: Assess for BPPV Precautions: Activity as tolerated Patient Profile/Admitting Diagnosis: Rabia is a 77-year-old recently female who was admitted to the ED on 08/01/2024 due to dizziness, fatigue, malaise, and dark bloody stools. Patient is admitted to [facility] for management of acute urinary tract infection, acute renal failure, dizziness, diarrhea, colloid cyst of brain, CAD, and dehydration. PMHX: See primary PT eval dated 08/02/2023 Social History/Home Situation: See primary PT eval dated 08/02/2023 Equipment owned/DME: None SUBJECTIVE: Patient states that she has had her symptoms around June 27, 2023 when she came to visit with her son Celestine and his family for the holidays. She has been staying at her son's house and never has she had this long and for this intensity. She indicated that she was given prescription for a mild dizziness iyears ago which she said did not realy help. Symptoms: Onset of symptoms: June 27, 2023 Trauma: [] Yes [X] No Exacerbating Factors: Present at rest and aggravated by head movements and walking Relieving Factors: Supine in bed Types of Dizziness: feels room swirling Headaches: [X] Yes [] No, mild ache and pressure Balance Deficits: [X] Yes [] No, Hearing Loss: [] Yes [X] No Tinnitis: [] Yes [X] No Functional Limitations: Required use of FWW after Marsha-Hallpike and Supine head roll test OBJECTIVE: General Observation: Topic of 's still difficult for patient Mental Status: A and O x 4 Pain: Posterior neck pain at insertion of upper trapezius and levator scapulae after Hardaway-Hallpike and supine head roll test that resolved with repositioning back to supine with HOB at 45 degrees Vital Signs: Negative for orthostatic hypotension ROM: ROM Cervical Spine : L cervical rotation limited to about 45-50 degrees with some dicomfort; R cervical rotation allows up to about 70 degrees Sustained End Range of Motion: (+ or ? for dizziness) [] Positive [X] No NEUROLOGICAL: Proprioception: Finger to Nose inatct Limb Direction Intact Fine Motor: Digital Finger intact Rhomberg: Positive with posterolateral sway to L needing assist to prevent LOB OCCULOMOTOR: Visual Tracking: Intact Head Thrust: Deferred, patient with colloidal cyst in foramen of Pop Head Shaking (+ or ? for nystagmus) Deferred, patient with colloidal cyst in foramen of Pop Vestibular Ocular Reflex (VOR): Intact VESTIBULAR TESTING Halpike Testing (BBPV): No torsional nystagmus on either side but reported increased sensation of room swirling Supine head Roll Test: No left/right beating nystagmus but reported increased intensity of room swirling BED MOBILITY/TRANSFERS: Supine-sit: independent Sit-supine: independent Sit-Stand: stand by assist with FWW Stand-sit: stand by assist with FWW Bed-Chair: stand by assist with FWW Chair-bed:stand by assist with FWW GAIT: Stand by assist with FWW for 25 feet + 25 feet ASSESSMENT: Will administer gentle vestibular rehab as tolerated by patient while on admission. PLAN OF CARE/TREATMENT PLAN: 1x/day, 7 days/ week for vestibular rehab added to 1x /day for functional mobility retraining. Plan of care has been reviewed with the LABORATORY TECHNOLOGIST providing the service under Physical therapy direction. -Gaze stabilization exercises -Habituation exercises DISCHARGE RECOMMENDATIONS: Vestibular rehab at an outpatient basis to regain highest functional mobility level. TREATMENT TIME/MINUTES/CODES: 73369 x 20 minutes for 1 unit, 12099 x 19 minutes for 1 unit beginning at 12:51 PM. Thank you for this referral. Please do not hesitate to contact me with any questions or concerns regarding this patient's POC.
--- NOTE | 2023-08-03 13:03 | PT.INTREAT ---
Date of service: 08/03/23 Time of Service: 09:43 PT Notes Visit Reasons: UTI,FANNY,Dehydration Inpatient Physical Therapy Treatment Note [facility] Date: 08/03/23 PRECAUTIONS: Fall, standard, activity as tolerated. SUBJECTIVE: Patient reports feeling very anxious about the MRI she is expecting to undergo today. States also that she is expecting to have something different for PT today where they're going to move [her] head all around. Per DPT Yi Heard, patient is not having Timothy maneuver done this am. OBJECTIVE: In hou's pose in bed, IV attached RUE. Agreeable to therapy. ? PAIN: none reported VITALS: monitored by nursing staff. ? BED MOBILITY/TRANSFERS? Rolling L/R: modified independent with bilateral side rails Supine-sit: modified independent with elevated HOB ? Sit-supine: not assessed? Sit-stand: CGA ? Stand-sit: CGA? Bed-Chair: CGA ? Chair-bed: CGA ? Therapeutic Exercises ([id number]): Direct one-on-one instruction in therapeutic exercises to develop strength, endurance, range of motion and flexibility. Ambulation ? Assistive Device: FWW? Weight bearing: full Assist: CGA, Assist with IV pole ? Distance:? 75 feet ? Deviation: reduced jaqueline, reduced step height. Reports mild dizziness throughout which does not worsen with standing, walking or turning. ? Provided skilled instruction in proper exercise performance Provided skilled manual cues to facilitate proper muscle recruitment and/or form. ASSESSMENT:? Patient tolerates therapy well, reports feeling fatigued at close of treatment session today. PLAN: Continue global strengthening per plan of care until patient is medically cleared for discharge. TREATMENT CODE/TIME: 11 minutes beginning at 9:43
[2023-08-03] MEDS: cefTRIAXone 1 GM/50 ML BAG IVPB (14:14)
--- NOTE | 2023-08-03 14:52 | PT.INTREAT ---
PT Notes Visit Reasons: UTI,FANNY,Dehydration Date: 08/03/23 PRECAUTIONS: Fall, standard, activity as tolerated. SUBJECTIVE: Pt in bed supine visiting with family, agreed to participating wit therapy after she goes to the toilet first to urinate. OBJECTIVE: ? pt connected to IV line? PAIN: non reported VITALS: monitored by nursing ? Therapeutic Activities [id number] 15mins: Direct one-on-one instruction in dynamic activities to improve functional performance. ? BED MOBILITY/TRANSFERS? Rolling L/R: Independent Supine-sit: Supervision ? Sit-supine: Supervision ? Sit-stand: SBA ? Stand-sit: Supervision? Bed- toilet: SBA? Toilet -bed: SBA Provided skilled cues and instruction on performance and technique throughout. Gait Training 23956 10mins: Direct one-on-one instruction and skilled instruction in: employing an assistive device modified weight-bearing status movement sequencing turning and movement with proper form Provided verbal cues for equipment management and technique Provided instruction in gait pattern Patient education regarding pacing and breathing techniques to maximize activity tolerance? GAIT? Assistive Device: FWW? Weight bearing: FWB Assist: Supervision/ SBA? Distance:? 200' ?asssitance with IV pole management.? Deviation: Slow jaqueline, SOB, low step height and step length, able to improve with verbal cue. ? ASSESSMENT:? Pt tolerated activity well, In and out of toilet supervision, provided assistance with IV pole management to be able to move safely, SOB correction wit DBE instruction, able to complete activity without LOB and pain. PLAN: [] TREATMENT CODE/TIME: [id number] 15mins, 28830m7 10mins [2:35-2:55pm]
--- NOTE | 2023-08-03 18:54 | PGE_ITS ---
Date of Service Date of service: 08/03/23 Time of Service: 18:55 Assessment and Plan Assessment and plan (1) Acute UTI: Status: Acute Assessment and plan: Present on admission. Evidently, the sample was not cultured because of sq cell contamination. Does have evidence of a stone in her bladder. Urine C&S yesterday was not collected; at this point (3 days of abx) I do not th ink it would be helpful.. Continue empiric ceftriaxone and IV hydration. (2) Acute renal failure: Status: Acute Assessment and plan: Appears to be pre-renal. Improved w/ IVF. Cr is 1.4 today. Per Granddaughter, her baseline Cr is 0.9-1.0. Continue hydration. Hold lisinopril and chlorthalidone. Hold NSAIDs. (3) Dizziness: Status: Acute Assessment and plan: W/ h/o vertigo. Today, PT was also unable to reproduce her symptoms. However, her dizziness has now also changed in character and I am suspicious of orthostatic hypotension. I have asked for this to be checked. Continue meclizine, lorazepam, PT Consulted. Neurosurgery does not believe that this is related to the colloidal cyst. MRI brain does not show hydrocephalus. (4) Diarrhea: Status: Acute Assessment and plan: C. diff negative. Also, negative for salmonella, shigella, and campylobacter. Continue probiotics. Continue pnr loperamide. Consider IBS/functional causes. Would benefit from an outpatient colonoscopy. Also, since the patient was dizzy and had diarrhea, need to consider Anaplasmosis - checking tick studies. (5) Colloid cyst of brain: Status: Acute Assessment and plan: Outpatient follow up, per [facility] neuro[place]. MRI brain also without hydrocephalus. The patient is returning to [place] and will need to follow up with neurosurgery there. (6) CAD (coronary artery disease): Status: Chronic Assessment and plan: Continue aspirin, statin, coreg. Hold lisinopril in setting of FANNY. (7) Hypertension: Status: Chronic Assessment and plan: As above Hold chlorthalidone and lisinopril. (8) Dehydration: Status: Acute Assessment and plan: Hydrate with Lactate ringers. (9) Grief reaction: Status: Chronic Assessment and plan: The patient lost her in April. We will provide counseling resources in the community. (10) DVT prophylaxis: Status: Acute Assessment and plan: SC heparin (11) Discharge planning issues: Status: Acute Assessment and plan: Full code by default The patient is not actually sure about her code status. PT on board. Will need neurosurgical follow up and a colonoscopy as outpatient in [place]. Anticipate discharge home tomorrow. Discussed with granddaughter Jennifer. Subjective Subjective Interval history since last seen: Ms Sandoval states that she is less dizzy today. Today her dizziness started after being up for a while and walking to the bathroom. Denies CP, SOB. Nausea is better. No diarrhea since this morning (just the one episode). We discussed the findings of the MRI. We discussed whether it's possible that she had had a tick bite. There are dogs in the house who do go outside but do not appear to have brought home any ticks. She would like me to talk to her granddaughter Jennifer ([phone]) who is a GI BIOLOGICAL SCIENTIST at the [employer]. I was happy to do this and answer all questions. Exam Narrative Exam Narrative: General: A pleasant elderly female who looks even better, A&Ox3, NAD HEENT: EOMI, MMM Cardiovascular: RRR, no m/r/g Lungs: CTAB Gastrointestinal: soft, nonteder, nondistended Extremities: no edema BLEs Objective Last Vital Signs Temp 36.8 C 08/03/23 15:41 Pulse 84 08/03/23 18:13 Resp 17 08/03/23 15:41 BP 167/73 H 08/03/23 18:13 Pulse Ox 98 08/03/23 15:41 Laboratory Results - last 24 hr 08/02/23 08/03/23 06:20 06:00 WBC 5.16 RBC 3.23 L Hgb 9.5 L Hct 29.1 L MCV 90 MCH 29.4 MCHC 32.6 RDW 12.8 Plt Count 168 MPV 10.8 Immature Gran % 0.4 Neutrophils % 66.7 Lymphocytes % 23.8 Monocytes % 6.8 Eosinophils % 1.9 Basophils % 0.4 Nucleated RBC % 0.0 Absolute Neutrophils 3.44 Absolute Lymphocytes 1.23 Absolute Monocytes 0.35 Absolute Eosinophils 0.10 Absolute Basophils 0.02 Sodium 144 Potassium 3.6 Chloride 111 H Carbon Dioxide 20.7 L Anion Gap 12.3 H BUN 50 H Creatinine 1.4 H Est GFR (CKD-EPI 2020) 38.27 Glucose 146 H Calcium 8.7 Magnesium 1.3 L Stool Campylobacter PCR Negative Stool Salmonella PCR Negative Stool Shigella PCR Negative Shiga Toxin (PCR) Negative Objective Narrative Objective Narrative: MRI brain: 1. 5.4 cm well-circumscribed lesion in the foramen of Monro most suggestive of a colloid cyst. There is no hydrocephalus. 2. Mild small vessel ischemic disease and age-appropriate cerebral atrophy. 3. Partially empty pituitary sella. 4. No evidence of an acute infarct. Time Spent with Patient Time Spent with Patient: 35-49 minutes Time was spent: preparing to see the patient(eg.review tests), obtaining and/or reviewing separately otained hiistory, ordering medications,tests, procedures, referring, communicating with other health specialist wound care, indepentently interpreting results, counseling the patient and care coordination
[2023-08-04] MEDS: Heparin 5,000 UNITS/ML VIAL 5000 UNITS SC ×2 (02:29→10:33)
[2023-08-04 02:33] VITALS: BP 116/68; PULSE 72; RESP 16; TEMP 37.3; O2SAT 97
[2023-08-04 07:05] LABS: Abs Immature Grans 0.01 10^3/uL (0.0-0.06); Absolute Basophil Count 0.02 10^3/uL (0.0-0.2); Absolute Eosinophil Count 0.12 10^3/uL (0.0-0.7); Absolute Lymphocyte Count 1.12 10^3/uL (1.2-3.4); Absolute Monocyte Count 0.34 10^3/uL (0.1-0.8); Absolute Neutrophil Count 3.25 10^3/uL (1.2-6.7); Basophils % 0.4; Eosinophils % 2.5; HCT 27.6 % (36.0-46.0); HGB 9.1 g/dL (11.2-15.7); Immature Grans % 0.2; MCH 29.6 pg (27.0-33.0); MCV 90 fL (80-95); MPV 10.7 fL (8.0-11.0); Neutrophils % 66.9; Platelet Count 160 10^3/uL (130-400); RBC 3.07 10^6/uL (3.93-5.22); RDW 12.8 % (11.7-14.6); RDW-SD 41.9 fL; WBC 4.86 10^3/uL (4.4-10.8)
[2023-08-04 07:21] LABS: Anion Gap 11.9 mmol/L (3-11); BUN 30 mg/dL (7-18); CO2 22.1 mmol/L (21.0-32.0); CREATININE 1.2 mg/dL (0.55-1.02); Calcium 8.7 mg/dL (8.5-10.1); Chloride 110 mmol/L (98-107); Estimated GFR 46.05 (mL/min/1.73m2); Glucose 157 mg/dL (74-106); Magnesium 1.7 mg/dL (1.8-2.4); Potassium 4.2 mmol/L (3.5-5.1); Sodium 144 mmol/L (136-145)
[2023-08-04 07:46] VITALS: BP 146/72; PULSE 77; RESP 21; TEMP 37.1; O2SAT 93
[2023-08-04] MEDS: Aspirin 81 MG CHEW PO (08:29)
[2023-08-04] MEDS: Carvedilol 25 MG TAB PO (08:30)
[2023-08-04] MEDS: Atorvastatin 40 MG TAB 80 MG PO (08:30)
[2023-08-04] MEDS: Multivitamin TAB 1 TAB PO (08:33)
[2023-08-04] MEDS: Magnesium Chloride 64 MG TABCR PO (08:33)
--- NOTE | 2023-08-04 10:09 | PDOC.CMPRO ---
Date of service: 08/04/23 Time of Service: 10:09 Care Management Progress Note Progress Note Text Progress Note Text: S/O:Rabia Fong was A: Rabia is a 77 year old woman admitted on 08/01/23 with diarrhea, FANNY and dehydration P:Anticipate Rabia will be discharged back to her son's home when medically cleared by provider. She will follow up with the provider assigned and transport with family. CM will follow and continue to assess for discharge needs.
--- NOTE | 2023-08-04 10:20 | PT.INTREAT ---
Date of service: 08/04/23 Time of Service: 09:29 PT Notes Visit Reasons: UTI,FANNY,Dehydration Inpatient Physical Therapy Treatment Note [facility] Date: 08/04/23 PRECAUTIONS: Fall, standard, activity as tolerated. SUBJECTIVE: Patient reports having slept poorly, feels as though she woke up every 90-120 minutes to urinate. Reports needing more rest. Reports some dizziness, although feels that it is much improved over yesterday. OBJECTIVE: Supine in bed, agreeable to therapy. ? PAIN: none reported. VITALS: monitored by nursing staff. ? BED MOBILITY/TRANSFERS? Rolling L/R: independent Supine-sit: independent]? Sit-supine: independent ? Sit-stand: independent ? Stand-sit: independent ? Bed-Chair: SBA ? Chair-bed: SBA Gait Training ([id number]): Direct one-on-one instruction and skilled instruction in: [] employing an assistive device [] modified weight-bearing status [] movement sequencing [] turning and movement with proper form [x] Provided verbal cues for equipment management and technique [x] Provided instruction in gait pattern [] Patient education regarding pacing and breathing techniques to maximize activity tolerance? GAIT? Assistive Device: FWW ? Weight bearing: full Assist: CGA ? Distance:? 100 feet x2 ? Deviation: slow jaqueline, reduced step height. ? STAIRS: Ascends and descends 2 six inch stairs and 3 four inch stairs with bilateral handrails, CGA. Reports she has one stair to enter at home, but is currently staying with her son who has 6. ? ASSESSMENT:? Patient tolerates therapy well, demonstrates good safety awareness on stairs. PLAN: Continue global strengthening per plan of care until patient is medically cleared for discharge. TREATMENT CODE/TIME: 18 minutes beginning at 9:29
[2023-08-04] MEDS: Normal Saline Flush 10 ML SYR IVP (11:41)
[2023-08-04 11:49] VITALS: BP 144/74; PULSE 73; RESP 17; TEMP 36.9; O2SAT 96
[2023-08-04] MEDS: cefTRIAXone 1 GM/50 ML BAG IVPB (14:36)
--- NOTE | 2023-08-04 16:24 | W.PM.DS.N ---
Date of service: 08/04/23 Time of Service: 16:24 DS: Diagnosis Discharge Diagnosis (1) Acute UTI: Status: Acute Asessment and Plan: No urine culture was obtained on admission as her urinalysis demonstrated squamous epithelial contamination. Urine culture was collected yesterday but results are pending at this time. Patient was treated with ceftriaxone and will be sent home on 5 days of ciprofloxacin 500 mg p.o. twice daily. For overactive bladder I am prescribing oxybutynin 5 mg twice daily. I recommend the patient follow-up with the urologist when she gets back to [place]. (2) Acute renal failure: Status: Acute Asessment and Plan: Patient presented with severe diarrhea and dehydration found to have elevated BUN of 112 and creatinine 3.1. With aggressive IV fluid hydration her FANNY resolved and her BUN settled at 30 and creatinine 1.2 the day of discharge. Patient be discharged home with resumption of her lisinopril at half his usual dose of 20 mg daily however she should remain off the hydrochlorothiazide for the next week until repeat BMP can be obtained. (3) Dizziness: Status: Acute Asessment and Plan: Combination of her baseline vertigo along with orthostasis secondary to severe dehydration and anemia. (4) Diarrhea: Status: Acute Asessment and Plan: Probable gastroenteritis however of note patient states when the diarrhea first started she had black looking stools however she was also taking Pepto-Bismol at the time. Of note she had a remote history of peptic ulcer disease in her teenage years and does not take any medication for GI protection. Of note she has never had a colonoscopy. It is highly recommended that she see a GI specialist when when she returns home. She is nervous about having any colonoscopy as her during a colonoscopy procedure. Of note her daughter is a GI nurse practitioner with the [facility] and I suggest that she talk with her daughter but having the procedure done there. I reviewed her labs with her and her son and show them that when she came in her hemoglobin appeared to be normal however this was hemoconcentrated and after aggressive IV fluid she diluted down to a hemoglobin around 9 g. On the day of discharge I did a digital rectal exam she had some light brown to yellowish smear of stool that was negative for occult blood. Did asked that her son have her labs repeated at the end of this week prior to returning to [place] to include a CBC and a BMP. 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 (6) CAD (coronary artery disease): Status: Chronic Asessment and Plan: Stable no symptoms of ischemic (7) Hypertension: Status: Chronic Asessment and Plan: Resume lisinopril 20 mg daily and after a few days increase it to 40 mg daily. Hold on hydrochlorothiazide for now and to repeat labs. (8) Dehydration: Status: Resolved (9) Grief reaction: Status: Chronic (10) DVT prophylaxis: Status: Acute (11) Discharge planning issues: Status: Acute Discharge Plan Disposition Patient Disposition: Home Condition: Improving Discharge Details Reason For Visit: UTI,FANNY,Dehydration Admit Date/Time: 08/01/23 16:01 Admit Provider: Lamar Johnson Attending Provider: Lamar Johnson [facility] Course: 77-year-old female with past medical history of coronary artery disease with PCI x 5 in 2009, hypertension, hyperlipidemia, vertigo, obesity with a BMI of 35 who is visiting her son in [facility]. Patient is a [place] of [facility]. She been complaining of diarrhea and dizziness for the last several days prior to admission and also had black looking stools on the day prior to admission although she was taking Pepto-Bismol. She has been having poor appetite with poor oral intake but yet she still been taking her hydrochlorothiazide and lisinopril. Laboratory evaluation on admission showed her to be severely azotemic very dehydrated with a BUN of 112 creatinine 3.1. With aggressive IV fluid hydration she came down to a BUN of 30 creatinine 1.2 at the time of discharge. Her lisinopril and hydrochlorothiazide were kept on hold although carvedilol was continued. Likewise her CBC on admission showed a falsely normal CBC with hemoglobin 12.2 g hematocrit 36% which declined down to a hemoglobin 9 g and hematocrit 27% with IV fluid hydration. Digital rectal exam was performed on the day of discharge and found to be negative for occult blood. Urinalysis on admission looks suspicious for UTI with greater than 50 white cells per high-power field large amount leukocyte esterase and 5-10 red cells and many bacteria however it was also contaminated with squamous epithelial cells. Therefore urine culture was not sent on admission but that was ordered by Dr. Johnson on 08/03/2023 and culture results are pending at this time. In the interim patient was placed on ceftriaxone 1 g IV daily which she received on 08/02/2022 through 08/04/2023. She will be discharged home on 5 more days of ciprofloxacin 5 her milligrams p.o. twice daily. For bladder year urinary urgency should be placed on oxybutynin 5 mg twice daily as needed. Rest of her workup for dizziness included CT scan of her head that demonstrated a colloidal cyst 5 mm cyst at the foramen of Monro with no ventricular dilatation. Neurosurgery from [facility] was contacted and they gave telephone consult to the hospitalist service recommended MRI scan. Dayday performed on 08/03/2023 and again demonstrated 5.4 cm well-circumscribed lesion in the foramen of Pop most suggestive of colloid cyst with no hydro selfless she has mild small vessel ischemic disease and age-appropriate cerebral atrophy. Based on her MRI findings no urgent neurosurgical intervention is needed at this time and is not related to her symptoms of dizziness which was related primarily due to her hypovolemia. It is recommended she follow-up with a neurosurgeon when she gets back to [place] to monitor the cyst to make sure it does not grow over time. Also as part of her workup she had abdominal pelvic CT scan on admission which showed a 7 mm calculus in the bladder but no bladder wall thickening no evidence of hydronephrosis no suspicious masses. Recommend she follow-up with a urologist regarding her bladder urgency Follow-up labs including BMP and CBC ordered to be done within the week to monitor Rufina and her any her renal function. Home Meds and New Rx's Prescriptions: New ciprofloxacin HCl [Cipro] 500 mg tablet 500 mg PO BID Qty: 10 0RF oxybutynin chloride 5 mg tablet 5 mg PO BID PRNQty: 14 0RF Rx Instructions: one twice a day as needed for overactive bladder Continued carvedilol 25 mg tablet 25 mg PO BID Rx Instructions: must administer with a meal/food lisinopril 40 mg tablet 40 mg PO DAILY atorvastatin 80 mg tablet 80 mg PO DAILY aspirin [Jake Chewable Aspirin] 81 mg tablet,chewable 81 mg PO DAILY multivitamin Tablet 1 tab PO DAILY Held chlorthalidone 25 mg tablet 25 mg PO DAILY Hold Instructions: Resume on 08/09/23. Discontinued ibuprofen [Advil] 200 mg tablet 200 mg PO TID-QID PRN Discharge Instructions Instructions: Ciprofloxacin (By mouth), Dehydration (DC), Acute Kidney Injury (DC), Urinary Tract Infection in Women (DC) Stand Alone Forms: Nursing Discharge Form Referrals: No,Local [Primary Care Provider] - () Activity:: Activity as Tolerated Equipment/Supplies:: Walker Diet:: Normal Diet Discharge Orders Discharge Orders: Discharge Order (Routine); Ordered 08/04/23 Ordered By: Lucius Rodriguez Ambulatory Orders: Basic Metabolic Panel (Routine) Timeframe: 1 Week Facility: [facility] - Location: Laboratory Outpatient - [facility] Ordered By: Lucius Barros DS: Summary Time Spent with Patient providing and/or coordinating discharge services: Greater than 30 minutes Specific discharge activities: Interview/exam of patient; review of discharge instructions, completion of prescriptions/discharge instructions; discussion w/ nursing and CM; documentation of hospital visit Status at Discharge Functional status at discharge: uses cane/walker Overall status at discharge: patient is progressing back to baseline Mental Status: mental status grossly normal Speech and Movement: speech and movement normal Mood: congruent mood Affect: normal affect Quality:SDOH Health Related Social Needs: Health related social needs details no needs, Health related social needs details: no needs Exam Narrative Exam Narrative: Rabia was seen in her room lying in bed talking with her son. She is tearful and depressed over recent loss of her in April. Otherwise she says she feels okay. She has had no further diarrhea no abdominal pain and no vomiting. Appetite is still poor although she did comment that she enjoyed the chicken salad. She says she did walk for physical therapy used a walker and ambulated independently with use of a walker with just standby assistance from physical therapist. Still gets lightheaded when she stands up quickly but her vital signs are stable. I reviewed her labs with her and her son her acute kidney injury has resolved. Lungs are clear to auscultation Heart is regular rate and rhythm Abdomen is obese soft nondistended nontender normal bowel sounds Extremities without peripheral cyanosis or edema. I told Rabia and her son to stay off of her diuretic wait a couple days and then resume her lisinopril. I do want them to get a repeat BMP to monitor kidney function electrolytes when she returns to [place]. I told her we would have physical therapy dispensed a walker for her to take home to her son's home here in [facility]. We talked about her CT findings and MRI findings of her head showing a colloidal cyst in the foramen magnum but there is no evidence of hydrocephalus and I explained to both that my colleague Dr. Johnson spoke with neurosurgery at [facility] there is no urgency to pursue treatment for this but it does need to be monitored. I recommend that she follow-up with a neurosurgeon back in [place] possibly at the [facility] when she gets back to her home in [facility]. Psych Mental Status: mental status grossly normal Speech and Movement: speech and movement normal Mood: congruent mood Affect: normal affect DS: Data Vitals/I&O Vitals and I&O: Vital Signs Temperature 36.9 C 08/04/23 11:49 Temperature Source Tympanic 08/04/23 11:49 Pulse 73 08/04/23 11:49 Pulse Rhythm Regular 08/04/23 09:56 Pulse 70 08/01/23 16:01 Respiratory Rate 17 08/04/23 11:49 Respiratory Effort Normal 08/04/23 09:56 Respiratory Depth Normal 08/04/23 08:55 Respiratory Pattern Normal 08/04/23 08:55 Blood Pressure 144/74 H 08/04/23 11:49 Blood Pressure Mean 73 08/01/23 16:01 Blood Pressure Position Sitting 08/01/23 11:45 Pulse Oximetry 96 08/04/23 11:49 Oxygen Delivery Method Room Air 08/04/23 11:49 Oxygen Flow Rate 0 08/04/23 11:49 Pain Level 0 08/04/23 11:49 Comment Nurse Notified 08/02/23 20:25 Intake & Output 08/03/23 08/04/23 08/04/23 23:59 11:59 23:59 Intake Total 1408.333 / 3547.916 1589.583 / 1589.583 Output Total 999 / 1999 1250 / 1250 Balance 408.333 / 1547.916 339.583 / 339.583 Weight 87.2 kg Intake: IV 1408.333 / 3297.916 1589.583 / 1589.583 Output: Urine 1000 / 1999 1250 / 1250 Other: Urine Color Yellow Yellow Urine Appearance Clear Clear Urine Odor Normal Voiding Methods Toilet Toilet Data Completed and Pending Labs on day of discharge: Labs from last 24 hours 08/04/23 06:20 WBC 4.86 RBC 3.07 L Hgb 9.1 L Hct 27.6 L MCV 90 MCH 29.6 MCHC 33.0 RDW 12.8 Plt Count 160 MPV 10.7 Immature Gran % 0.2 Neutrophils % 66.9 Lymphocytes % 23.0 Monocytes % 7.0 Eosinophils % 2.5 Basophils % 0.4 Nucleated RBC % 0.0 Absolute Neutrophils 3.25 Absolute Lymphocytes 1.12 L Absolute Monocytes 0.34 Absolute Eosinophils 0.12 Absolute Basophils 0.02 Sodium 144 Potassium 4.2 Chloride 110 H Carbon Dioxide 22.1 Anion Gap 11.9 H BUN 30 H Creatinine 1.2 H Est GFR (CKD-EPI 2020) 46.05 Glucose 157 H Calcium 8.7 Magnesium 1.7 L B. divergens/MO-1 PCR Pending Babesia duncani (PCR) Pending Babesia microti DNA PCR Pending Lyme Disease Antibody Pending E.chaffeensis DNA (PCR) Pending E.ewingii/canis DNA PCR Pending E.muris eauclairensis (PCR) Pending A. phagocytophilum (PCR) Pending Blood B. miyamotoi (PCR) Pending 08/04/23 00:36 Urine - Voided Urine Culture - Pending Preliminary micro results at discharge 08/04/23 00:36 Urine Culture - Pending [facility] - [facility]ed [facility] All Active Problems (Updated 08/04/23 @ 16:50 by Lucius Barros MD) Discharge planning issues (Acute) DVT prophylaxis (Acute) Diarrhea (Acute) CAD (coronary artery disease) (Chronic) Acute UTI (Acute) Grief reaction (Chronic) Acute renal failure (Acute) Dizziness (Acute) Colloid cyst of brain (Acute) Hypertension (Chronic) Medical History Vertigo Surgical History History of total right knee replacement H/O shoulder surgery R shoulder History of carpal tunnel surgery of right wrist H/O cardiac catheterization stents x 5 in 2009 Family History Father Heart disease Paternal Grandmother Diabetes Social History Smoking/Tobacco Use Status: Never Smoking risk assessment performed?: Yes Alcohol Intake: current Alcohol Intake frequency: holidays/special occasions only Drug use: Never Substance use type: does not use Housing: house Time Spent with Patient Time Spent with Patient: <45 minutes Time was spent: preparing to see the patient(eg.review tests), obtaining and/or reviewing separately otained hiistory, ordering medications,tests, procedures, referring, communicating with other health care coordinator, indepentently interpreting results, counseling the patient and care coordination
--- NOTE | 2023-08-04 16:26 | PDOC.CMDIS ---
Date of service: 08/04/23 Time of Service: 16:26 LACE Index Scoring Tool Questions: Length of Stay (in days): 3 Was the patient admitted via the E.D.?: Yes E.D. Visits: 1 Answers: Total Score: 7 Risk of Readmission: Low Risk Care Management Discharge Plan Reason for Hospitalization: Uti Discharge Plan: Rabia will be discharged back to her son's home locally. She will follow up with her PCP when she returns home to [place] and will transport with family. Patient/Family Education Needs: Review of discharge instructions, activity, limitations, follow up plan, discuss Ask Me Three SDOH Health Related Social Needs: Health related social needs details no needs, Health related social needs details: no needs
[2023-08-04 16:48] VITALS: BP 165/77; PULSE 78; RESP 18; TEMP 37.5; O2SAT 97
[2023-08-05 09:59] LABS: Lyme Ab w Rflx to Lyme Confirm Negative (Negative)
[2023-08-06 22:28] LABS: Anaplasma phagocytophilum Negative (Negative); B. miyamotoi PCR Negative (Negative); Babesia divergens/MO-1 Negative (Negative); Babesia duncani Negative (Negative); Babesia microti Negative (Negative); Ehrlichia chaffeensis Negative (Negative); Ehrlichia ewingii/canis Negative (Negative); Ehrlichia muris eauclairensis Negative (Negative)
== END 2023-08-04 17:28 | disposition home or self-care (01) | DRG 683 ==
LOC: ER 14:45 → MS 16:49
PROVIDERS: Admitting Provider Internal Medicine; Emergency Provider Nurse Practitioner Family; Visit Provider Internal Medicine
DX: N17.9 Acute kidney failure, unspecified (principal); N39.0 Urinary tract infection, site not specified; R42 Dizziness and giddiness; I25.10 Atherosclerotic heart disease of native coronary artery without angina pectoris; E86.0 Dehydration; G93.0 Cerebral cysts; I10 Essential (primary) hypertension; F43.21 Adjustment disorder with depressed mood; D64.9 Anemia, unspecified; N21.0 Calculus in bladder; Z95.5 Presence of coronary angioplasty implant and graft; E78.5 Hyperlipidemia, unspecified; E66.9 Obesity, unspecified; Z68.35 Body mass index [BMI] 35.0-35.9, adult; F43.20 Adjustment disorder, unspecified; K52.9 Noninfective gastroenteritis and colitis, unspecified
CPT/HCPCS: 00123; 36415; 80048; 80053; 82550; 86850; 86900; 86901; 87493; 87505; 87798; 93005; 96361; 96365; 96366; 96367; 96372; 97110; 97112; 97116; 97161; 97162; 97530; 99285; 70450; 70551; 74176; 80329; 81003; 81015; 83735; 84484; 85025; 85610; 86618; 87086; 93010; 99223; 99232; 99233; 99239; J0696; J1644; J2060; J2405; J3475; J3480

== ENCOUNTER 2023-08-06 15:02 | Outpatient (CLI) | payer BC, SELFPAY ==
[2023-08-06 14:17] LABS: Abs Immature Grans 0.04 10^3/uL (0.0-0.06); Absolute Basophil Count 0.03 10^3/uL (0.0-0.2); Absolute Eosinophil Count 0.13 10^3/uL (0.0-0.7); Absolute Lymphocyte Count 1.06 10^3/uL (1.2-3.4); Absolute Monocyte Count 0.69 10^3/uL (0.1-0.8); Absolute Neutrophil Count 8.62 10^3/uL (1.2-6.7); Basophils % 0.3; Eosinophils % 1.2; HCT 31.2 % (36.0-46.0); HGB 10.4 g/dL (11.2-15.7); Immature Grans % 0.4; MCH 29.9 pg (27.0-33.0); MCHC 33.3 % (32.0-36.0); MCV 90 fL (80-95); MPV 10.3 fL (8.0-11.0); Monocytes % 6.5; Neutrophils % 81.6; Platelet Count 212 10^3/uL (130-400); RBC 3.48 10^6/uL (3.93-5.22); RDW 12.9 % (11.7-14.6); RDW-SD 42.4 fL; WBC 10.57 10^3/uL (4.4-10.8)
[2023-08-06 14:36] LABS: Anion Gap 10.5 mmol/L (3-11); BUN 16 mg/dL (7-18); CO2 25.5 mmol/L (21.0-32.0); CREATININE 1.6 mg/dL (0.55-1.02); Calcium 8.9 mg/dL (8.5-10.1); Chloride 103 mmol/L (98-107); Glucose 125 mg/dL (74-106); Sodium 139 mmol/L (136-145)
== END 2023-08-06 15:03 | disposition home or self-care (01) ==
LOC: LBO 15:03
PROVIDERS: Visit Provider Internal Medicine
DX: N17.9 Acute kidney failure, unspecified (principal)
CPT/HCPCS: 36415; 80048; 85025